=== PATIENT | female | born 1970 | race African-American/Black ===

== ENCOUNTER → 2020-05-12 08:27 | Outpatient (BNVA) | payer MEDICAID, SELFPAY | PROVIDERS: Visit Provider Physician Assistant | DX: Z76.89 Persons encountering health services in other specified circumstances (principal) ==

== ENCOUNTER 2020-05-17 06:22 | Outpatient (REF) | payer MEDICAID, SELFPAY | END 2020-05-17 06:23 | disposition home or self-care (01) | LOC: HO.LAB 06:22 | PROVIDERS: Visit Provider Internal Medicine | DX: Z20.822 Contact with and (suspected) exposure to COVID-19 (principal) | CPT/HCPCS: 36415; C9803; U0003 ==

== ENCOUNTER 2020-12-03 09:22 | Outpatient (REF) | payer MEDICAID, SELFPAY ==
[2020-12-03 10:57] LABS: Basophils Percent Auto 0.4 % (0-2); Lymphocytes Absolute Auto 1.7 X10*3/uL (1.2-4.9); Mean Corpuscular Volume 74.6 fL (80-98); Red Cell Distribution Width 20.3 % (11.0-16.0)
[2020-12-03 10:58] LABS: Eosinophils Percent Auto 0.8 % (0-4); Hematocrit 34.9 % (37-47); Hemoglobin 10.3 g/dl (12.0-16.0); Imm Gran Abs Auto 0.01 X10*3/uL (0.00-0.03); Imm Gran Pct Auto 0.2 % (0.0-0.4); Lymphocytes Percent Auto 32.6 % (20-40); Mean Corpuscular HGB Conc 29.5 g/dl (31.0-35.0); Mean Platelet Volume 11.1 fL (9.4-12.3); Monocytes Absolute Auto 0.4 X10*3/uL (0.1-1.2); Monocytes Percent Auto 7.1 % (2-11); Neutrophils Absolute Auto 3.1 X10*3/uL (2.0-8.3); Neutrophils Percent Auto 58.9 % (45-73); Platelet Count 248 X10*3/uL (160-400); Red Blood Count 4.68 X10*6/uL (4.20-5.50); White Blood Count 5.2 X10*3/uL (4.8-10.8)
[2020-12-03 11:11] LABS: Estimated Average Glucose 128 mg/dL; Hemoglobin A1c % 6.1 %
[2020-12-03 11:34] LABS: Alanine Aminotransferase 15 U/L (0-31); Albumin Level 4.3 g/dL (3.5-5.0); Alkaline Phosphatase 95 U/L (39-117); Anion Gap 14 (12-20); Aspartate Amino Transferase 25 U/L (5-31); Bilirubin Total 0.8 mg/dL (0.0-1.0); Blood Urea Nitrogen 12 mg/dL (9-16); C Reactive Protein 1.89 mg/dL (< or = 0.50); Calcium 9.3 mg/dL (8.4-10.2); Carbon Dioxide 27 mmol/L (22-29); Chloride 103 mmol/L (96-108); Cholesterol 166 mg/dL; Estimated Glomerular Filt Rate > 60; Glucose Random 101 mg/dL (60-115); HDL Cholesterol 39 mg/dL; Iron 33 mcg/dL (30-160); LDL Cholesterol Calculated 108 mg/dl; Percent Iron Saturation 6 % (15-50); Potassium 4.7 mmol/L (3.3-5.1); Sodium 139 mmol/L (135-145); Total Iron Binding Capacity 527 mcg/dL (228-428); Total Protein 8.1 g/dL (6.5-8.0); Triglycerides 98 mg/dL; Unsaturated Iron Binding 494 ug/dL
[2020-12-03 11:53] LABS: Folate > 20.0 ng/mL (> or = 4.0); Vitamin B12 603 pg/mL (200-900)
[2020-12-03 11:54] LABS: Ferritin 9 ng/mL (10-250); TSH reflex Free T4 5.27 uIU/mL (0.32-4.0); Vitamin D 25-OH Total 47.4 ng/mL (>30)
[2020-12-03 12:35] LABS: Free T4 (Free Thyroxine) 1.06 ng/dL (0.71-1.85)
[2020-12-04 10:02] LABS: Insulin Level Total 12.3 uIU/mL
[2020-12-06 16:20] LABS: Calcium (PTHI) 9.1 mg/dL (8.6-10.2); PTHI 59 pg/mL (14-64)
[2020-12-08 01:42] LABS: Zinc 77 mcg/dL (60-130)
[2020-12-08 11:56] LABS: Vitamin B1 23 nmol/L (8-30)
[2020-12-09 03:32] LABS: Vitamin A 39 mcg/dL (38-98)
== END 2020-12-03 09:23 | disposition home or self-care (01) ==
LOC: HO.LAB 09:22
PROVIDERS: PCP Internal Medicine; Visit Provider Physician Assistant
DX: E66.9 Obesity, unspecified (principal); Z79.899 Other long term (current) drug therapy; Z98.84 Bariatric surgery status; Z71.3 Dietary counseling and surveillance; Z68.33 Body mass index [BMI] 33.0-33.9, adult
CPT/HCPCS: 36415; 80053; 80061; 82306; 82607; 82728; 82746; 83036; 83525; 83540; 83970; 84425; 84439; 84443; 84590; 84630; 85025; 86140; 99212

== ENCOUNTER → 2021-01-14 08:03 | Outpatient (BNVA) | payer MEDICAID, SELFPAY | PROVIDERS: PCP Internal Medicine; Visit Provider Dietitian, Registered | DX: E66.9 Obesity, unspecified (principal) | CPT/HCPCS: 97803 ==

== ENCOUNTER → 2021-02-16 09:20 | Outpatient (BNVA) | payer MEDICAID, SELFPAY | PROVIDERS: PCP Internal Medicine; Referring Provider Internal Medicine; Visit Provider Physician Assistant Surgical | DX: E66.9 Obesity, unspecified (principal); K21.9 Gastro-esophageal reflux disease without esophagitis; Z68.32 Body mass index [BMI] 32.0-32.9, adult | CPT/HCPCS: 99212 ==

== ENCOUNTER → 2021-03-21 08:06 | Outpatient (BNVA) | payer MEDICAID, SELFPAY | PROVIDERS: PCP Internal Medicine; Visit Provider Physician Assistant Surgical | DX: E66.9 Obesity, unspecified (principal) ==

== ENCOUNTER 2022-01-09 11:23 | Outpatient (REF) | payer MEDICAID, SELFPAY ==
--- NOTE | ~2022-01-09 | XR_ITS ---
EXAMINATION: XR FOOT, LEFT CLINICAL INFORMATION: Left lateral foot pain/burning. No injury COMPARISON: None TECHNIQUE: AP, lateral, and oblique views of the left foot. FINDINGS: No fracture or dislocation. Normal mineralization and alignment. Moderate plantar calcaneal osteophyte. XR/XR foot LT min 3V IMPRESSION: No acute osseous abnormality of the left foot.
--- NOTE | ~2022-01-09 | MM_ITS ---
EXAMINATION: MM SCREENING DIGITAL BREAST TOMOSYNTHESIS, BILATERAL CLINICAL INFORMATION: Screening. Asymptomatic. The lifetime risk of breast cancer based on the Tyrer-Cuzick Model is 8%. COMPARISON: Mammography: 08/20/2018, 01/18/2017; outside mammography: 11/30/2012, 02/12/2013 ([facility]) TECHNIQUE: Digital breast tomosynthesis is performed in both the craniocaudal and mediolateral oblique views along with computer-aided detection (CAD). Synthesized 2D images are generated from the tomosynthesis. Additional right CC view is provided. FINDINGS: There are scattered areas of fibroglandular density (ACR BI-RADS breast composition Category b). There are no significant masses, abnormal calcifications, or other abnormalities. Parenchymal pattern is similar to prior studies. There is no developing density or architectural abnormality. The axilla and skin contours are unremarkable. No significant changes. MM/MM tomosynthesis screening BI IMPRESSION: No mammographic evidence of malignancy. ASSESSMENT: BI-RADS 1: Negative RECOMMENDATION: Routine annual mammography screening. This patient's information was entered into a reminder system with a target due date for their next mammogram.
== END 2022-01-09 11:24 | disposition home or self-care (01) ==
LOC: HO.MAMMO 11:23
PROVIDERS: PCP Internal Medicine; Visit Provider Internal Medicine
DX: Z12.31 Encounter for screening mammogram for malignant neoplasm of breast (principal); M79.672 Pain in left foot
CPT/HCPCS: 73630; 77063; 77067

== ENCOUNTER 2023-01-17 15:32 | Outpatient (AMB) | payer MEDICAID, SELFPAY ==
--- NOTE | 2023-01-17 15:38 | MHC.OFFVISWM ---
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 Presents for 6 year post op visit. Weight today is 188.4 pounds, with a BMI of 33.4. She has not been seen in the office in 2 years, weight at that time on 02/16/21 was 184.6 pounds and a BMI of 32.7. She states she is feeling hungry and that between 3-5 pm. She also states she feels it may be anxiety. wake 6 am, bed at 10 pm, dinner 5 pm Present meal plan includes: 11 am 2 eggs, 2 pm sandwich 3-6 pm cereal w whole milk, cookies, Drinking 32 oz water, no soda or juice ? Exercise routine includes: none Any post op complications: none YARELY: never DM: never HTN: resolverd Hyperlipidemia: never GERD:?0-5 scale ??0 = no symptoms ??1 = symptoms noticeable but not bothersome 2 =symptoms bothersome but not daily ? 3 = symptoms bothersome and daily 4 = symptoms affect daily activities 5 = symptoms are incapacitating, unable to do daily activities ? How bad is the heartburn: [] ? Heartburn while lying down: [] ? Heartburn when standing up: [] ? Heartburn after meals: [] ? Does heartburn change your diet: [] ? Does heartburn wake you up from sleep: [] ? Do you have difficulty swallowing: [] ? Do you have pain with swallowing: [] ? If you take medicine for your reflux, does this affect your daily life: [] Satisfaction with present condition - satisfied or not satisfied: [] PFSH Surgical History History of sleeve gastrectomy Hx of cholecystectomy Hx of tubal ligation Family History Father Diabetes mellitus Hypertension Mother Bone cancer Son Diabetes mellitus Son No problems noted. Son No problems noted. Son No problems noted. Daughter No problems noted. Social History Alcohol intake: never Patient Tobacco Use Status: Never used Tobacco Review of Systems Const All systems reviewed & are unremarkable except as noted in HPI and below Physical Exam Const General: cooperative and no acute distress Orientation/consciousness: patient oriented x3 Resp Effort & Inspection: normal respiratory effort Auscultation: clear to auscultation bilaterally Cardio Rate: regular rate Rhythm: regular rhythm GI Inspection: Yes normal to inspection and Yes incision (well healed) Palpation (GI): Soft to palpation and no masses Neuro General: patient oriented x3 Assessment & Plan Assessment & Plan (1) Obesity: Code(s): E66.9 - Obesity, unspecified Plan: check yearly labs meal plan using Celebrate rebuild all 1 scoop in 8 oz unsweetened almond milk 7-9 am shake 11-1 pm shake 3 pm yogurt w berries 5 pm meal -7 forks/7 forks 7-9 pm shake start exercise goal of cardio 300 neelima per day. treadmill/bike/elliptical rtc 6 weeks with goal of 12 pound weight loss Orders: Orders Vitamin B12 and Folate Today D50.9 - Iron deficiency anemia, unspecified, E03.9 - Hypothyroidism, unspecified, E66.9 - Obesity, unspecified, F43.20 - Adjustment disorder, unspecified Basic Metabolic Panel Today D50.9 - Iron deficiency anemia, unspecified, E03.9 - Hypothyroidism, unspecified, E66.9 - Obesity, unspecified, F43.20 - Adjustment disorder, unspecified Ferritin Today D50.9 - Iron deficiency anemia, unspecified, E03.9 - Hypothyroidism, unspecified, E66.9 - Obesity, unspecified, F43.20 - Adjustment disorder, unspecified Hemoglobin A1c Today D50.9 - Iron deficiency anemia, unspecified, E03.9 - Hypothyroidism, unspecified, E66.9 - Obesity, unspecified, F43.20 - Adjustment disorder, unspecified IRON PROFILE Today D50.9 - Iron deficiency anemia, unspecified, E03.9 - Hypothyroidism, unspecified, E66.9 - Obesity, unspecified, F43.20 - Adjustment disorder, unspecified Lipid Panel Today D50.9 - Iron deficiency anemia, unspecified, E03.9 - Hypothyroidism, unspecified, E66.9 - Obesity, unspecified, F43.20 - Adjustment disorder, unspecified PTHI Today D50.9 - Iron deficiency anemia, unspecified, E03.9 - Hypothyroidism, unspecified, E66.9 - Obesity, unspecified, F43.20 - Adjustment disorder, unspecified TSH reflex Free T4 Today D50.9 - Iron deficiency anemia, unspecified, E03.9 - Hypothyroidism, unspecified, E66.9 - Obesity, unspecified, F43.20 - Adjustment disorder, unspecified Vitamin A Today D50.9 - Iron deficiency anemia, unspecified, E03.9 - Hypothyroidism, unspecified, E66.9 - Obesity, unspecified, F43.20 - Adjustment disorder, unspecified Vitamin B1 Today D50.9 - Iron deficiency anemia, unspecified, E03.9 - Hypothyroidism, unspecified, E66.9 - Obesity, unspecified, F43.20 - Adjustment disorder, unspecified Vitamin D 25-OH Total Today D50.9 - Iron deficiency anemia, unspecified, E03.9 - Hypothyroidism, unspecified, E66.9 - Obesity, unspecified, F43.20 - Adjustment disorder, unspecified Zinc Today D50.9 - Iron deficiency anemia, unspecified, E03.9 - Hypothyroidism, unspecified, E66.9 - Obesity, unspecified, F43.20 - Adjustment disorder, unspecified Complete Blood Count Auto Diff Today D50.9 - Iron deficiency anemia, unspecified, E03.9 - Hypothyroidism, unspecified, E66.9 - Obesity, unspecified, F43.20 - Adjustment disorder, unspecified Referrals Behavioral Health Referral D50.9 - Iron deficiency anemia, unspecified, E03.9 - Hypothyroidism, unspecified, E66.9 - Obesity, unspecified, F43.20 - Adjustment disorder, unspecified Coding Level of Care Code Est Pt Level 4 (72603) Diagnoses Obesity E66.9
[2023-01-17 15:45] VITALS: BP 139/77; PULSE 87; TEMP 35.7; O2SAT 97; BMI 33.4
== END 2023-01-17 16:23 | disposition home or self-care (01) ==
PROVIDERS: PCP Internal Medicine; Visit Provider Physician Assistant Surgical
DX: E66.9 Obesity, unspecified (principal)
CPT/HCPCS: 99214

== ENCOUNTER → 2023-01-17 15:32 | Outpatient (BNVA) | payer MEDICAID, SELFPAY | PROVIDERS: PCP Internal Medicine; Visit Provider Physician Assistant Surgical | DX: E66.9 Obesity, unspecified (principal); Z68.33 Body mass index [BMI] 33.0-33.9, adult; Z98.84 Bariatric surgery status | CPT/HCPCS: 99212 ==

== ENCOUNTER 2023-01-18 09:40 | Outpatient (REF) | payer MEDICAID, SELFPAY ==
[2023-01-18 09:59] LABS: MANUAL DIFF FLAG NO
[2023-01-18 10:33] LABS: Basophils Percent Auto 0.3 % (0-2); Eosinophils Percent Auto 0.7 % (0-4); Hematocrit 39.8 % (37.0-47.0); Hemoglobin 12.5 g/dl (12.0-16.0); Imm Gran Abs Auto 0.02 X10*3/uL (0.00-0.03); Imm Gran Pct Auto 0.3 % (0.0-0.4); Lymphocytes Percent Auto 33.8 % (20-40); Mean Corpuscular HGB Conc 31.4 g/dl (31.0-35.0); Mean Corpuscular Hemoglobin 26.5 pg (27.0-33.0); Mean Corpuscular Volume 84.3 fL (80.0-98.0); Mean Platelet Volume 10.8 fL (9.4-12.3); Monocytes Absolute Auto 0.4 X10*3/uL (0.1-1.2); Monocytes Percent Auto 7.4 % (2-11); Neutrophils Absolute Auto 3.4 x10*3/uL (2.0-8.3); Neutrophils Percent Auto 57.5 % (45-73); Platelet Count 217 X10*3/uL (160-400); Red Blood Count 4.72 X10*6/uL (4.20-5.50); Red Cell Distribution Width 17.3 % (11.0-16.0); White Blood Count 5.9 X10*3/uL (4.8-10.8)
[2023-01-18 10:36] LABS: Estimated Average Glucose 123 mg/dL; Hemoglobin A1c % 5.9 % (<6.0)
[2023-01-18 11:25] LABS: Anion Gap 9 (12-20); Blood Urea Nitrogen 9 mg/dL (9-16); Calcium 9.5 mg/dL (8.4-10.2); Carbon Dioxide 28 mmol/L (22-29); Chloride 106 mmol/L (96-108); Cholesterol 171 mg/dL (<200); Estimated Glomerular Filt Rate > 60; Glucose Random 89 mg/dL (60-115); HDL Cholesterol 37 mg/dL (>40); Iron 58 mcg/dL (30-160); LDL Cholesterol Calculated 111 mg/dL (<100); Percent Iron Saturation 15 % (15-50); Potassium 4.2 mmol/L (3.3-5.1); Sodium 139 mmol/L (135-145); Total Iron Binding Capacity 385 mcg/dL (228-428); Triglycerides 118 mg/dL (<150); Unsaturated Iron Binding 327 ug/dL
[2023-01-18 11:43] LABS: Ferritin 25 ng/mL (10-250); TSH reflex Free T4 1.34 uIU/mL (0.32-4.0); Vitamin D 25-OH Total 51.5 ng/mL (>30)
[2023-01-18 11:51] LABS: Folate 14.7 ng/mL (> or = 4.0); Vitamin B12 582 pg/mL (200-900)
[2023-01-19 15:54] LABS: Calcium (PTHI) 9.1 mg/dL (8.6-10.4); PTHI 61 pg/mL (16-77)
[2023-01-22 09:39] LABS: Zinc 70 mcg/dL (60-130)
[2023-01-23 14:04] LABS: Vitamin B1 13 nmol/L (8-30)
[2023-01-24 14:18] LABS: Vitamin A 43 mcg/dL (38-98)
== END 2023-01-18 09:41 | disposition home or self-care (01) ==
LOC: HO.LAB 09:40
PROVIDERS: PCP Internal Medicine; Visit Provider Physician Assistant Surgical
DX: E66.9 Obesity, unspecified (principal); F43.20 Adjustment disorder, unspecified; E03.9 Hypothyroidism, unspecified; D50.9 Iron deficiency anemia, unspecified
CPT/HCPCS: 36415; 80048; 80061; 82306; 82607; 82728; 82746; 83036; 83540; 83970; 84425; 84443; 84590; 84630; 85025

== ENCOUNTER 2023-03-30 10:23 | Outpatient (AMB) | payer MEDICAID, SELFPAY ==
--- NOTE | 2023-03-30 10:32 | A.OFFVIS_ITS ---
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 Presents for 6 year 1 month year post op visit. Weight today is 188.4 pounds, with a BMI of 33.4. She was last seen in the office on 01/17/2023. Weight at that time was 188.4 lb with a BMI of 33.4. Weight today is 189.4 with a BMI of 33.6. She states she is having increased anxiety and has been stress eating. States she is following the meal plan exactly 2 days per week but using 2 scoops per shake. Inquired about the use of phentermine wake 6 am, bed at 10 pm, dinner 5 pm Present meal plan includes: Celebrate rebuild all 1 scoop in 8 oz unsweetened almond milk 7-9 am shake 11-1 pm shake 3 pm yogurt w berries 5 pm meal -7 forks/7 forks 7-9 pm shake ? Exercise routine includes: walking PFSH Surgical History History of sleeve gastrectomy Hx of tubal ligation Hx of cholecystectomy Family History Father Diabetes mellitus Hypertension Mother Bone cancer Son Diabetes mellitus Son No problems noted. Son No problems noted. Son No problems noted. Daughter No problems noted. Social History Alcohol intake: never Patient Tobacco Use Status: Never used Tobacco Review of Systems Const All systems reviewed & are unremarkable except as noted in HPI and below Physical Exam Const General: healthy appearing and no acute distress Resp Effort & Inspection: normal respiratory effort Auscultation: clear to auscultation bilaterally Cardio Rate: regular rate Rhythm: regular rhythm GI Auscultation: normal bowel sounds Extrem General: Yes normal to inspection Assessment & Plan Assessment & Plan (1) Obesity: Code(s): E66.9 - Obesity, unspecified Plan: Patient will start phentermine 37.5 mg. She states that she has a blood pressure cuff at home that also contract her heart rate. She states that she will check her blood pressure and heart rate daily and text those numbers to me. She was made aware of potential side effects including tachycardia, hypertension, insomnia, dry mouth, constipation. We discussed strategies when she becomes anxious instead of eating, including some form of exercise as well as slow breathing. She will follow the meal plan exactly as written or text with any questions or concerns. Return to clinic in 2 weeks Medications: New phentermine must administer 30 minutes before or 1-2 hours after breakfast check BP daily 37.5 mg PO DAILY 14 caps 0RF Coding Level of Care Code Est Pt Level 4 (70655) Diagnoses Obesity E66.9
[2023-03-30 10:38] VITALS: BP 145/77; PULSE 84; TEMP 36.2; O2SAT 100; BMI 33.5
== END 2023-03-30 11:12 | disposition home or self-care (01) ==
LOC: HO.HBS 10:24
PROVIDERS: PCP Internal Medicine; Visit Provider Physician Assistant Surgical
DX: E66.9 Obesity, unspecified (principal)
CPT/HCPCS: 99214

== ENCOUNTER → 2023-03-30 10:23 | Outpatient (BNVA) | payer MEDICAID, SELFPAY | PROVIDERS: PCP Internal Medicine; Visit Provider Physician Assistant Surgical | DX: E66.9 Obesity, unspecified (principal); Z68.33 Body mass index [BMI] 33.0-33.9, adult | CPT/HCPCS: 99212 ==

== ENCOUNTER 2023-04-10 12:16 | Outpatient (AMB) | payer MEDICAID, SELFPAY ==
--- NOTE | 2023-04-10 12:01 | MHC.OFFVISWM ---
Intake VS Expanded 04/10/23 12:02 Height 5 ft 3 in Weight 186 lb BMI 32.9 Intake Visit Reasons: VIDEO MO LSG 02/15/17 *Time okay Per MB* Allergies No Known Allergies Allergy (Verified 03/30/23 10:33) Pt states no food/medication a Allergy (Unknown, Uncoded 01/17/23 15:41) none HPI HPI Comments History of Present Illness Details This?a?52?yo female who is s/p LSG without hiatal hernia repair on?02/15/[address] Bui. Presents for 6 year 2 month year post op visit. Weight today is 186 pounds, with a BMI of 32.9. She was last seen in the office on 03/30/23. Weight at that time was 188.4 lb with a BMI of 33.4. She was started on Phentermine but experienced increased BP, since stopping phentermine 120s/70s States she is following the meal plan exactly wake 6 am, bed at 10 pm, dinner 5 pm Present meal plan includes: Celebrate rebuild all 1 scoop in 8 oz unsweetened almond milk 7-9 am shake 11-1 pm shake 3 pm yogurt w berries 5 pm meal -7 forks/7 forks 7-9 pm shake Drinkin oz Exercise: Gym, treadmill, 1 hour 425 calories, 4 x per week. Eliptical, 50 neelima PFSH Surgical History History of sleeve gastrectomy Hx of tubal ligation Hx of cholecystectomy Family History Father Diabetes mellitus Hypertension Mother Bone cancer Son Diabetes mellitus Son No problems noted. Son No problems noted. Son No problems noted. Daughter No problems noted. Social History Alcohol intake: never Patient Tobacco Use Status: Never used Tobacco Assessment & Plan Assessment & Plan (1) Obesity: Code(s): E66.9 - Obesity, unspecified Plan: Making progress. Reminded of the importance of measuring her food. Phentermine was discontinued due to hypertension with resolution of hypertension based on her home blood pressure readings once the med was discontinued. She was additionally encouraged to increase her exercise at the gym by 1 day. She will return to the office in 3 weeks time. Telehealth Telehealth Location of provider rendering services: practice address Location of patient: address on file Patient Identification confirmed using: Name, : Yes Telehealth method: voice only Patient verbally consented to treatment: Yes Patient verbally consented to billing insurance company: Yes Patient informed of any privacy concerns related to visit: Yes Minutes spent on Phone/Video with Pt.: 12 Coding Level of Care Code Tele Est Pt Level 3 (79821) Diagnoses Obesity E66.9 Time Spent (min) 15
[2023-04-10 12:02] VITALS: BMI 32.9
== END 2023-04-10 12:17 | disposition home or self-care (01) ==
LOC: HO.HBS 12:16
PROVIDERS: PCP Internal Medicine; Visit Provider Physician Assistant Surgical
DX: E66.9 Obesity, unspecified (principal); Z68.32 Body mass index [BMI] 32.0-32.9, adult
CPT/HCPCS: 99213

== ENCOUNTER → 2023-04-10 12:16 | Outpatient (BNVA) | payer MEDICAID, SELFPAY | PROVIDERS: PCP Internal Medicine; Visit Provider Physician Assistant Surgical | DX: E66.9 Obesity, unspecified (principal); Z68.32 Body mass index [BMI] 32.0-32.9, adult; Z90.49 Acquired absence of other specified parts of digestive tract; Z90.3 Acquired absence of stomach [part of] | CPT/HCPCS: 99213 ==

== ENCOUNTER 2023-05-02 09:05 | Outpatient (AMB) | payer MEDICAID, SELFPAY ==
[2023-05-02 08:43] VITALS: BMI 31.9
--- NOTE | 2023-05-02 08:43 | MHC.OFFVISWM ---
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 Presents for 6 year 3 month year post op visit. Weight today is 180 pounds, with a BMI of 31.9. She was last seen in the office on 04/10/23. Weight at that time was 186 lb with a BMI of 32.9. States she is following the meal plan exactly wake 6 am, bed at 10 pm, dinner 5 pm Present meal plan includes: Celebrate rebuild all 1 scoop in 8 oz unsweetened almond milk 7-9 am shake 11-1 pm shake 3 pm yogurt w berries 5 pm meal -7 forks/7 forks 7-9 pm shake Drinkin oz Exercise: Gym, treadmill, 1 hour 425 calories, 4 x per week. Eliptical, 15 minutes, 50 neelima PFSH Surgical History History of sleeve gastrectomy Hx of tubal ligation Hx of cholecystectomy Family History Father Diabetes mellitus Hypertension Mother Bone cancer Son Diabetes mellitus Son No problems noted. Son No problems noted. Son No problems noted. Daughter No problems noted. Social History Alcohol intake: never Patient Tobacco Use Status: Never used Tobacco Assessment & Plan Assessment & Plan (1) Obesity: Code(s): E66.9 - Obesity, unspecified Plan: overall doing well and losing weight, recognizes the importance of consistency and increasing the time at the gym to 5 days change meal plan slightly to : Celebrate rebuild 1 scoop in 8 oz unsweetened almond milk for the first 2 shakes 7-9 am shake 11-1 pm shake 3 pm yogurt w berries 5 pm meal -7 forks/7 forks 7-9 pm shake, 1/2 scoop in 8 oz unsweetened almond milk rtc 4 weeks Telehealth Telehealth Location of provider rendering services: practice address Location of patient: other Patient Identification confirmed using: Name, : Yes Telehealth method: voice only Patient verbally consented to treatment: Yes Patient verbally consented to billing insurance company: Yes Patient informed of any privacy concerns related to visit: Yes Minutes spent on Phone/Video with Pt.: 10 Coding Level of Care Code Tele Est Pt Level 3 (51845) Diagnoses Obesity E66.9 Time Spent (min) 12
== END 2023-05-02 09:07 | disposition home or self-care (01) ==
LOC: HO.HBS 09:05
PROVIDERS: PCP Internal Medicine; Visit Provider Physician Assistant Surgical
DX: E66.9 Obesity, unspecified (principal); Z68.31 Body mass index [BMI] 31.0-31.9, adult; Z90.3 Acquired absence of stomach [part of]; Z98.84 Bariatric surgery status
CPT/HCPCS: 99213

== ENCOUNTER → 2023-05-02 09:05 | Outpatient (BNVA) | payer MEDICAID, SELFPAY | PROVIDERS: PCP Internal Medicine; Visit Provider Physician Assistant Surgical | DX: E66.9 Obesity, unspecified (principal); Z68.31 Body mass index [BMI] 31.0-31.9, adult | CPT/HCPCS: 99212 ==

== ENCOUNTER 2023-07-26 10:13 | Outpatient (REF) | payer MEDICAID, SELFPAY ==
[2023-07-26 14:19] LABS: MANUAL DIFF FLAG NO
[2023-07-26 14:28] LABS: Basophils Percent Auto 0.4 % (0-2); Eosinophils Percent Auto 0.4 % (0-4); Hematocrit 40.4 % (37.0-47.0); Hemoglobin 13.2 g/dl (12.0-16.0); Imm Gran Abs Auto 0.03 X10*3/uL (0.00-0.03); Imm Gran Pct Auto 0.4 % (0.0-0.4); Lymphocytes Absolute Auto 2.2 X10*3/uL (1.2-4.9); Lymphocytes Percent Auto 30.3 % (20-40); Mean Corpuscular HGB Conc 32.7 g/dl (31.0-35.0); Mean Corpuscular Hemoglobin 26.5 pg (27.0-33.0); Mean Platelet Volume 11.7 fL (9.4-12.3); Monocytes Absolute Auto 0.4 X10*3/uL (0.1-1.2); Neutrophils Absolute Auto 4.5 x10*3/uL (2.0-8.3); Neutrophils Percent Auto 62.5 % (45-73); Platelet Count 206 X10*3/uL (160-400); Red Blood Count 4.99 X10*6/uL (4.20-5.50); Red Cell Distribution Width 18.6 % (11.0-16.0); White Blood Count 7.2 X10*3/uL (4.8-10.8)
[2023-07-26 15:19] LABS: Alanine Aminotransferase 19 U/L (0-31); Albumin Level 4.3 g/dL (3.5-5.0); Alkaline Phosphatase 96 U/L (39-117); Anion Gap 16 (12-20); Aspartate Amino Transferase 20 U/L (5-31); Bilirubin Total 0.8 mg/dL (0.0-1.0); Blood Urea Nitrogen 10 mg/dL (9-16); Calcium 9.2 mg/dL (8.4-10.2); Carbon Dioxide 25 mmol/L (22-29); Chloride 102 mmol/L (96-108); Cholesterol 175 mg/dL (<200); Estimated Glomerular Filt Rate > 60; Glucose Random 63 mg/dL (60-115); HDL Cholesterol 43 mg/dL (>40); Iron 84 mcg/dL (30-160); LDL Cholesterol Calculated 110 mg/dL (<100); Percent Iron Saturation 21 % (15-50); Potassium 3.8 mmol/L (3.3-5.1); Sodium 139 mmol/L (135-145); Total Iron Binding Capacity 399 mcg/dL (228-428); Total Protein 8.3 g/dL (6.5-8.0); Triglycerides 110 mg/dL (<150); Unsaturated Iron Binding 315 ug/dL
[2023-07-30 23:09] LABS: HIV RNA PCR Qn Copies Not Detected Copies/mL; HIV RNA PCR Qn Log Copies Not Detected Log cps/mL
== END 2023-07-26 10:14 | disposition home or self-care (01) ==
LOC: HO.CHCLDS 10:13
PROVIDERS: Visit Provider Internal Medicine
DX: Z11.4 Encounter for screening for human immunodeficiency virus [HIV] (principal); E03.9 Hypothyroidism, unspecified; D50.8 Other iron deficiency anemias
CPT/HCPCS: 36415; 80053; 80061; 83540; 84439; 84443; 85025; 87536; 87900

== ENCOUNTER 2023-08-14 10:54 | Outpatient (REF) | payer MEDICAID, SELFPAY ==
[2023-08-21 04:18] LABS: HPV mRNA E6/E7 rflx Not Detected (Not Detected)
== END 2023-08-14 10:55 | disposition home or self-care (01) ==
LOC: HO.LNP 10:54
PROVIDERS: Visit Provider Advanced Practice Midwife
DX: Z01.419 Encounter for gynecological examination (general) (routine) without abnormal findings (principal)
CPT/HCPCS: 87624; 88142

== ENCOUNTER 2023-08-21 16:24 | Outpatient (REF) | payer MEDICAID, SELFPAY ==
--- NOTE | ~2023-08-21 | US_ITS ---
EXAMINATION: US PELVIS CLINICAL INFORMATION: Menorrhagia COMPARISON: Previous pelvic ultrasound September 2016 TECHNIQUE: Ultrasound of the pelvis is performed using both transabdominal and transvaginal transducers along with Doppler. Transvaginal imaging is performed due to inadequate visualization transabdominally. FINDINGS: Uterus is anteverted and measures 10.6 x 4.7 x 5.7 cm in dimension. Uterus is heterogeneous in echotexture. There are 2 focal hypoechoic lesions questionable for fibroids measuring 2.4 x 2.5 x 2.3 cm in the left uterine fundus and 1.4 cm in the posterior uterine body. Endometrial thickness is normal measuring 0.5 cm. There are nabothian cysts in the cervix. The ovaries are normal. The right ovary measures 2.8 x 1.4 x 1.3 cm. The left ovary measures 2.8 x 2 x 2 cm. There is no fluid in the pelvis. US/US pelvic and transvaginal IMPRESSION: Heterogeneous appearing uterus with 2 focal hypoechoic lesions probably representing fibroids, largest measuring 2.5 cm and the left uterine fundus. Normal-appearing ovaries.
== END 2023-08-21 16:25 | disposition home or self-care (01) ==
LOC: HO.US 16:24
PROVIDERS: PCP Internal Medicine; Visit Provider Advanced Practice Midwife
DX: N92.0 Excessive and frequent menstruation with regular cycle (principal)
CPT/HCPCS: 76830; 76856

== ENCOUNTER 2023-09-05 13:46 | Outpatient (AMB) | payer MEDICAID, SELFPAY ==
--- NOTE | 2023-09-05 08:26 | A.OFFVIS_ITS ---
VS Expanded 09/05/23 08:27 Height 5 ft 3 in Weight 191 lb BMI 33.8 Intake Visit Reasons: (TV) MO LSG 02/15/17 Allergies No Known Allergies Allergy (Verified 03/30/23 10:33) Pt states no food/medication a Allergy (Unknown, Uncoded 01/17/23 15:41) none HPI Comments Details: This?a?52?yo female who is s/p LSG without hiatal hernia repair on?02/15/[address] Bui. Presents for 6 year 6 month year post op visit. Weight today is 191 pounds, with a BMI of 33.8. She was last seen in the office on 05/02/23. Weigh t at that time was 180 lb with a BMI of 32.9. States she has had weight gain but she gets bored with her meal plan and then goes back to eating. She has been picking at things. wake 6 am, bed at 10 pm, dinner 5 pm Present meal plan includes: Celebrate rebuild all 1 scoop in 8 oz unsweetened almond milk 7-9 am shake 11-1 pm shake 3 pm yogurt w berries 5 pm meal -7 forks/7 forks 7-9 pm shake Drinkin oz Exercise: walking outside, 2-3 days per week, 300-350 not much time at the gym Gym, treadmill, 1 hour 425 calories, 4 x per week. Eliptical, 15 minutes, 50 neelima PFSH Surgical History History of sleeve gastrectomy Hx of tubal ligation Hx of cholecystectomy Family History Father Diabetes mellitus Hypertension Mother Bone cancer Son Diabetes mellitus Son No problems noted. Son No problems noted. Son No problems noted. Daughter No problems noted. Social History Alcohol intake: never Patient Tobacco Use Status: Never used Tobacco Physical Exam Vital Signs: BMI result Body Mass Index 33.8 Telehealth Telehealth Telehealth Platform: Telephone Location of provider rendering services: practice address Location of patient: address on file Patient Identification confirmed using: Name, : Yes Telehealth method: voice only Patient verbally consented to treatment: Yes Patient verbally consented to billing insurance company: Yes Patient informed of any privacy concerns related to visit: Yes Minutes spent on Phone/Video with Pt.: 15 Assessment & Plan Assessment & Plan (1) Obesity: Code(s): E66.9 - Obesity, unspecified Category: Medical Plan: Encouraged to return to the meal plan and follow it closely. Encouraged to text with any questions or concerns, especially if she gets ?bored? with the meal plan. Encouraged to return to the gym and increase her exercise as she had been doing previously. She does state that when she follows meal plan she has not particularly ?hungry?. She also feels better when she is following the plan and exercising regularly. Return to clinic 2 months with the understanding she will text sooner with any questions or concerns.
[2023-09-05 08:27] VITALS: BMI 33.8
== END 2023-09-05 14:01 | disposition home or self-care (01) ==
LOC: HO.HBS 13:46
PROVIDERS: PCP Internal Medicine; Visit Provider Physician Assistant Surgical
DX: E66.9 Obesity, unspecified (principal)
CPT/HCPCS: 99213

== ENCOUNTER → 2023-09-05 13:46 | Outpatient (BNVA) | payer MEDICAID, SELFPAY | PROVIDERS: PCP Internal Medicine; Visit Provider Physician Assistant Surgical ==

== ENCOUNTER 2023-09-10 14:50 | Outpatient (AMB) | payer MEDICAID, SELFPAY ==
[2023-09-10 15:05] VITALS: BP 118/74; BMI 33.6
--- NOTE | 2023-09-10 15:05 | A.OFFVIS_ITS ---
Vital Signs 09/10/23 15:05 Height 5 ft 3 in Weight 189 lb 9.561 oz BMI 33.6 BP 118/74 Intake Visit Reasons: New patient Fibroids Allergies No Known Allergies Allergy (Verified 09/10/23 15:15) Pt states no food/medication a Allergy (Unknown, Uncoded 09/10/23 15:15) none HPI Comments Details: The patient is referred from [facility] complaining of irregular heavy menstrual cycles. Pelvic ultrasound done in 09/04 showed the following: Uterus is anteverted and measures 10.6 x 4.7 x 5.7 cm in dimension. Uterus is heterogeneous in echotexture. There are 2 focal hypoechoic lesions questionable for fibroids measuring 2.4 x 2.5 x 2.3 cm in the left uterine fundus and 1.4 cm in the posterior uterine body. Endometrial thickness is normal measuring 0.5 cm. There are nabothian cysts in the cervix. The ovaries are normal. The right ovary measures 2.8 x 1.4 x 1.3 cm. The left ovary measures 2.8 x 2 x 2 cm. There is no fluid in the pelvis. Last co testing in 09/04 was negative Last mammogram in 01/02 was BI-RADS 1, the patient is scheduled for another wv reening mammogram in few weeks [facility] Surgical History History of sleeve gastrectomy Hx of tubal ligation Hx of cholecystectomy Family History Father Diabetes mellitus Hypertension Mother Bone cancer Son Diabetes mellitus Son No problems noted. Son No problems noted. Son No problems noted. Daughter No problems noted. Social History Alcohol intake: never Patient Tobacco Use Status: Never used Tobacco Review of Systems Const All systems reviewed & are unremarkable except as noted in HPI and below Card Reports as per HPI Resp Reports as per HPI GI Reports as per HPI and Reports no additional complaints Reports as per HPI Physical Exam Vital Signs: Last Vital Signs BP 118/74 09/10/23 15:05 BMI result Body Mass Index 33.6 Const General: cooperative, healthy appearing and comfortable Chest Chest palpation & inspection: normal inspection of the chest and normal palpation of entire chest wall Breast/axilla inspection: normal inspection of the breasts and normal inspection of the axillae Breast/axilla palpation: normal palpation of the breasts, normal palpation of the axillae and no axillary lymphadenopathy Resp Effort & Inspection: normal respiratory effort Auscultation: clear to auscultation bilaterally Percussion: percussion normal Cardio Palpation: normal PMI Rate: regular rate Rhythm: regular rhythm Heart sounds: no murmurs and no rubs Peripheral pulses: Peripheral pulses 2+ throughout GI Inspection: Yes normal to inspection Palpation (GI): Soft to palpation, nontender, no guarding, not rigid and No hepatosplenomegaly present Percussion: Yes normal to percussion Auscultation: normal bowel sounds Rectal Exam - Female: deferred General: Yes bladder normal to palpation External Female Exam: No lesion Speculum Exam - Vagina: normal appearance of the vagina, normal palpation, samantha l vaginal discharge and not erythematous Speculum Exam - Cervix: normal appearance of the cervix and normal palpation Bimanual exam- vagina & uterus: normal bimanual exam, normal palpation, uterine size normal, bladder normal to palpation, consistency normal and normal palpation Bimanual Exam- Adnexa, other: normal adnexae, no masses and no tenderness Assessment & Plan Assessment & Plan (1) Abnormal uterine bleeding (AUB): Code(s): N93.9 - Abnormal uterine and vaginal bleeding, unspecified Category: Medical Plan: GC and chlamydia taken CBC, TSH, prolactin, FSH/LH, HCG ordered and pelvic ultrasound recently done. Discussed with the patient the different causes of abnormal bleeding including thyroid disorders, uterine and ovarian pathology, endometrial hyperplasia, carcinoma and other potential causes. Discussed with the patient the work up including CBC (to r/o anemia), TSH, FSH/LH, prolactin, pelvic Ultrasound, endometrial biopsy to r/o endometrial pathology. All questions answered and the patient verbalized understanding. Instructed the patient to schedule an appointment for an endometrial biopsy in 2 weeks. (2) Uterine myoma: Code(s): D25.9 - Leiomyoma of uterus, unspecified Category: Medical Plan: Discussed with the patient the results of the ultrasound and the size of the myomas. Discussed with the patient risk of myosarcoma and symptoms that are caused by myomas including but not limited to pelvic pain, pressure symptoms, abnormal uterine bleeding. In addition discussed with the patient options of treatment for myomas including: Serial ultrasounds periodically to follow-up on the size of the myoma while targeting the treatment against fibroids related symptoms ( control pills, Mirena IUD, progesterone treatment, GnRH agonist/antagonist, uterine artery embolization or endometrial ablation) versus surgical treatment including hysterectomy and or myomectomy. All pros and cons, risks and benefits of all options were discussed with the patient. Orders: Orders TSH reflex Free T4 Today N93.9 - Abnormal uterine and vaginal bleeding, unspecified Prolactin Today N93.9 - Abnormal uterine and vaginal bleeding, unspecified HCG Quantitative Today N93.9 - Abnormal uterine and vaginal bleeding, unspecified Complete Blood Count no Diff Today N93.9 - Abnormal uterine and vaginal bleeding, unspecified Lutenizing Hormone Today N93.9 - Abnormal uterine and vaginal bleeding, unspecified Follicle Stimulating Hormone Today N93.9 - Abnormal uterine and vaginal bleeding, unspecified Coding Level of Care Code New Pt Level 3 (88505) Diagnoses Abnormal uterine bleeding (AUB) N93.9 Uterine myoma D25.9
== END 2023-09-10 15:28 | disposition home or self-care (01) ==
PROVIDERS: PCP Internal Medicine; Referring Provider Internal Medicine; Visit Provider Obstetrics & Gynecology
DX: N93.9 Abnormal uterine and vaginal bleeding, unspecified (principal); D25.9 Leiomyoma of uterus, unspecified
CPT/HCPCS: 99203

== ENCOUNTER 2023-09-10 14:50 | Outpatient (REF) | payer MEDICAID, SELFPAY ==
[2023-09-11 17:41] LABS: CT PCR NOT DETECTED (Not Detect.); NG PCR NOT DETECTED (Not Detect.)
== END 2023-09-10 14:51 | disposition home or self-care (01) ==
LOC: HO.LNP 14:50
PROVIDERS: PCP Internal Medicine; Visit Provider Obstetrics & Gynecology
DX: N93.9 Abnormal uterine and vaginal bleeding, unspecified (principal); D25.9 Leiomyoma of uterus, unspecified
CPT/HCPCS: 0353U; 99202

== ENCOUNTER 2024-03-05 09:50 | Outpatient (REF) | payer MEDICAID, SELFPAY ==
[2024-03-05 14:30] LABS: MANUAL DIFF FLAG NO
[2024-03-05 14:33] LABS: Basophils Percent Auto 0.3 % (0-2); Eosinophils Absolute Auto 0.1 X10*3/uL (0.0-0.4); Eosinophils Percent Auto 0.8 % (0-4); Hematocrit 37.8 % (37.0-47.0); Hemoglobin 11.6 g/dl (12.0-16.0); Imm Gran Abs Auto 0.02 X10*3/uL (0.00-0.03); Imm Gran Pct Auto 0.3 % (0.0-0.4); Lymphocytes Absolute Auto 1.9 X10*3/uL (1.2-4.9); Lymphocytes Percent Auto 31.7 % (20-40); Mean Corpuscular HGB Conc 30.7 g/dl (31.0-35.0); Mean Corpuscular Hemoglobin 25.1 pg (27.0-33.0); Mean Corpuscular Volume 81.6 fL (80.0-98.0); Mean Platelet Volume 11.5 fL (9.4-12.3); Monocytes Absolute Auto 0.4 X10*3/uL (0.1-1.2); Monocytes Percent Auto 6.9 % (2-11); Neutrophils Absolute Auto 3.7 x10*3/uL (2.0-8.3); Platelet Count 238 X10*3/uL (160-400); Red Blood Count 4.63 X10*6/uL (4.20-5.50); Red Cell Distribution Width 18.9 % (11.0-16.0); White Blood Count 6.1 X10*3/uL (4.8-10.8)
[2024-03-05 15:02] LABS: Alanine Aminotransferase 40 U/L (0-31); Alkaline Phosphatase 113 U/L (39-117); Anion Gap 11 (12-20); Aspartate Amino Transferase 44 U/L (5-31); Bilirubin Total 0.9 mg/dL (0.0-1.0); Blood Urea Nitrogen 9 mg/dL (9-16); Calcium 9.1 mg/dL (8.4-10.2); Carbon Dioxide 28 mmol/L (22-29); Chloride 106 mmol/L (96-108); Cholesterol 155 mg/dL (<200); Estimated Glomerular Filt Rate > 60; Glucose Random 89 mg/dL (60-115); HDL Cholesterol 43 mg/dL (>40); Iron 44 mcg/dL (30-160); LDL Cholesterol Calculated 88 mg/dL (<100); Percent Iron Saturation 11 % (15-50); Potassium 3.9 mmol/L (3.3-5.1); Sodium 141 mmol/L (135-145); Total Iron Binding Capacity 390 mcg/dL (228-428); Total Protein 7.7 g/dL (6.5-8.0); Triglycerides 123 mg/dL (<150); Unsaturated Iron Binding 346 ug/dL
[2024-03-05 15:07] LABS: TSH reflex Free T4 4.18 uIU/mL (0.32-4.0)
[2024-03-08 12:12] LABS: TS Negative Control Passed; TS Panel A 0; TS Panel B 0; TS Positive Control Passed; TSpotTB Negative (Negative)
== END 2024-03-05 09:51 | disposition home or self-care (01) ==
LOC: HO.CHCLDS 09:50
PROVIDERS: Visit Provider Internal Medicine
DX: D50.8 Other iron deficiency anemias (principal); Z11.1 Encounter for screening for respiratory tuberculosis
CPT/HCPCS: 36415; 80053; 80061; 83540; 84439; 84443; 85025; 86481

== ENCOUNTER 2024-07-11 16:04 | Outpatient (REF) | payer MEDICAID, SELFPAY ==
--- OUTSIDE RECORDS SUMMARY | 2024-07-11 17:54 | XMS_ITS | Encounter Summary ---
Author Organization [employer] Address [address] [place] [id number] Care Team Providers Care Retail Salesperson Name Role Phone Rafat Ashraf MD Primary Care Prov ider Encounter Details Date Type Department Care Team ([facility] st Contact Info) Description 09/19/2022 Orders Only [facility] [address] [place] [address] Odilia Currie LPN Social History Tobacco Use Types Packs/Day Years Used Date Smoking Tobacco: Never Assessed Comments Unknown Sex and Gender Information Value Date Recorded Sex Assigned at Female 03/13/2022 10:16 AM EDT Legal Sex Female 10:16 AM EDT Gender Identity Female 03/13/2022 10:16 AM EDT Sexual Orientation Straight 03/13/2022 10 :16 AM EDT documented as of this encounter Plan of Treatment Not on file documented as of this encounter Visit Diagnoses Not on filedocumented in this encounter Care Teams Retail Salesperson Relationship Specialty Start Date End Date Rafat Ashraf MD [address] [place] [address] PCP - General Internal Medicine 09/30/19 documented as of this encounter
--- OUTSIDE RECORDS SUMMARY | 2024-07-11 17:54 | XMS_ITS | Clinical Summary ---
Author Organization [employer] Address [address] [place] [address] 7 [place] [address] Care Team Providers Care Bariatric Program Coordinator Name Role Phone Rafat Ashraf MD Primary Care Prov ider Allergies No known active allergies Medications Blood Pressure kit 1 kit in the morning. 1 kit 023 Active cetirizine (ZyrTEC) 10 MG tablet Take 1 tablet (10 mg) by mouth in the morning. 30 tablet 11 024 2024 Active Omeprazole 20 MG tablet delayed-release Take 20 mg by mouth in the morning. 90 tablet 3 024 2024 Active Semaglutide-Weigh t Management (Wegovy) 0.25 MG/0.5ML solution auto-injector Inject 0.25 mg under the skin 1 (one) time per week. 3 mL Active ferrous gluconate (Fergon) 324 (38 Fe) MG tabletIndications :Iron deficiency anemia secondary to inadequate dietary iron intake Take 1 tablet (324 mg) by mouth with breakfast. 30 tablet 3 Active docusate sodium (Colace) 100 MG capsule Take 1 capsule (100 mg) by mouth 2 times daily. 60 capsule 11 024 2024 Active levothyroxine (Synthroid, Levoxyl) 112 MCG tabletIndications :Acquired hypothyroidism Take 1 tablet (112 mcg) by mouth Once per day. 90 tablet 3 024 2024 Active Semaglutide-Weigh t Management (Wegovy) 1 MG/0.5ML solution auto-injector Inject 0.5 mL (1 mg) under the skin 1 (one) time per week. 2 mL 024 Active Zepbound 2.5 MG/0.5ML solution auto-injector INJECT 0.5 ML (2.5 MG) SUBCUTANEOUSLY ONCE PER WEEK 2 mL 025 Active nitrofurantoin, macrocrystal-mono hydrate, (Macrobid) 100 MG capsule Take 1 capsule (100 mg) by mouth 2 times daily for 5 days. 10 capsule 025 2024 Active phenazopyridine (Pyridium) 100 MG tabletIndications :Bladder Mucosa Irritation Take 1-2 tablets (100-200 mg) by mouth if needed in the morning, at noon, and at bedtime (Bladder spasms, UTI symptoms) for up to 2 days. 12 tablet 025 2024 Active Tirzepatide-Weigh t Management (Zepbound) 2.5 MG/0.5ML solution auto-injector Inject 0.5 mL (2.5 mg) under the skin 1 (one) time per week. 3 mL 025 2024 Discontinued Active Problems Problem Noted Date Diagnosed Date Obesity (BMI 35.0-39.9 without comorbidity) 02/12 Assessment & Plan (05/28/2024 10:02 AM EST): Lost about 15lbs, switched to zepbound, call back if any side effects reported Assessment & Plan (04/16/2024 9:26 AM EST): Patient tolerating wegovy, currently on the lowest dose, will increase it to 0.5mg, told starting May she will be switched to zepbound Assessment & Plan (03/05/2024 10:09 AM EDT): She has sleeve gastrectomy, will start on wegovy, risk vs benefits were discussed Gastroesophageal reflux disease without esophagi tis 10/03/2023 Assessment & Plan (10/03/2023 5:37 AM EDT): Symptoms improved, continue omeprazole, continue lifestyle modifications Right elbow pain 10/03/2023 Assessment & Plan (10/03/2023 5:39 AM EDT): Patient receiving physical therapy, symptoms have been improving, continue exercises, apply ice, take tylenol/ibuprofen as needed UTI symptoms 09/04/2023 Assessment & Plan (07/11/2024 2:27 PM EST): - UA in office (+) leuk, neg nitrites. Suspect hematuria 2/2 infx or start of menses - UA w/ reflex culture sent to lab - Tx with macrobid BID x 5 days. Reviewed med use and SE - May use pyridium PRN urinary symptoms - Encouraged good hydration, follow up precautions reviewed Assessment & Plan (09/04/2023 3:01 PM EDT): Drink plenty of water, do not hold urine Macrobid BID Pyridium 100mg Q 8hrs for 3 days UA and culture, patient to be contacted with results Screening for colon cancer 07/31/2023 Assessment & Plan (03/05/2024 10:08 AM EDT): Scheduled for , will follow up reccomendations Assessment & Plan (07/31/2023 10:36 AM EDT): Will place Gi referral Elevated blood pressure reading 01/23/2023 Assessment & Plan (09/04/2023 3:01 PM EDT): BP reading high today likely because patient is uncomfortable Monitor BP at home and f/u with PCP Assessment & Plan (07/31/2023 10:32 AM EDT): Has remained stable below 140/90, no changes will be made, continue low sodium diet and exercise as tolerated Assessment & Plan (01/23/2023 8:34 PM EDT): Will order a bp monitor, reinforced low sodium diet and exercise as tolerated, will follow up in 1month Acquired hypothyroidism 01/23/2023 Assessment & Plan (05/28/2024 10:01 AM EST): On oral thyroid replacement, clinically euthyroid, told to get blood work done for guidance of therapy Assessment & Plan (04/16/2024 9:21 AM EST): Not at target, will increase levothyroxine to 112mcg, repeat tsh in 6-8 weeks Assessment & Plan (03/05/2024 10:06 AM EDT): New labs will be ordered for guidance of therapy, she is clinically euthyroid Assessment & Plan (07/31/2023 10:33 AM EDT): No sign/symptoms of hypothyroidism, will order new tsh, will call with results Assessment & Plan (01/23/2023 8:35 PM EDT): On levothyroxine, clinically and chemically euthyroid, no changes will be made Iron deficiency anemia harinder cummings to inadequate dietary iron intake 01/23/2023 Assessment & Plan (05/28/2024 10:02 AM EST): On oral iron replacement, new labs sent for guidance of therapy Assessment & Plan (04/16/2024 9:22 AM EST): Told to restart ferrous sulfate, repeat test in 3-4 months, denied bleeding Assessment & Plan (07/31/2023 10:33 AM EDT): On ferrous sulfate, new labs will be ordered Assessment & Plan (01/23/2023 8:36 PM EDT): Continue oral iron replacement, labs reviewed. Anemia 02/20/2018 Assessment & Plan (03/05/2024 10:07 AM EDT): Will order cbc/iron for evaluation of current trend Encounters Date Type Department Care Team Description 07/11/2024 1:45 PM EST Office Visit [facility] [address] [place] [address] Lou Nay, PARACHUTE RIGGER UTI symptoms 07/11/2024 Travel 07/11/2024 Telephone [facility] [address] [place] [address] Rafat Ashraf MD Nurse Triage 06/19/2024 Refill [facility] [address] [place] [address] Rafat Ashraf MD 05/28/2024 9:45 AM EST Office Visit [facility] [address] [place] [address] Rafat Ashraf MD Iron deficiency anemia secondary to inadequate dietary iron intake (Primary Dx); Acquired hypothyroidism; Obesity (BMI 35.0-39.9 without comorbidity) 05/28/2024 Travel 05/27/2024 Telephone [facility] [address] [place] [address] Rafat Ashraf MD Chart Prep 05/27/2024 Orders Only [facility] [address] [place] [address] Rafat Ashraf MD 05/23/2024 Refill [facility] [address] [place] [address] Rafat Ashraf MD 04/28/2024 Orders Only [facility] [address] [place] [address] Rafat Ashraf MD 04/16/2024 8:30 AM EST Telemedicine [facility] [address] [place] [address] Rafat Ashraf MD Obesity (BMI 35.0-39.9 without comorbidity) (Primary Dx); Iron deficiency anemia secondary to inadequate dietary iron intake; Acquired hypothyroidism 04/16/2024 Travel 04/15/2024 Telephone [facility] [address] [place] [address] Rafat Ashraf MD chart prep from Last 3 Months Immunizations Name Administration Dates Next Due Hep B, adult 07/25/2013,02/09/2012,01/12/2012 Influenza Injectable Quadriv alant Preservative Free IIV4 MDCK 03/10/2021 MMR 02/09/2012,01/12/2012 Pfizer Covid-19 Vaccine 12+ 06/30/2020, Tdap 03/05/2024,11/16/2010 Family History Medical History Relation Name Comments Diabetes Father Dad Hypertension Father Dad Kidney disease Father Dad Arthritis Mother Self Miscarriages / Stillbirths Mother Self Relation Name Status Comments Father Dad Mother Self Social History Tobacco Use Types Packs/Day Years Used Date Smoking Tobacco: Never Smokeless Tobacco: Never Tobacco Cessation:Counseling Given: Not Answered Alcohol Use Standard Drinks/Week Comments Yes 0 (1 standard drink = 0.6 oz pur e alcohol) Depression Answer Date Recorded Patient Health Questionnaire-9 Score 1 07/19/2023 Patient Health Questionnaire-9 Score 1 07/19/2023 Last PHQ-9: Questionnaire Data Not on file 0 07/19/2023 Housing Stability Answer Date Recorded What is your housing situation today? I have randee sanders 02/27/[address] you li ve. Do you have problems with any of the following? None of the above 02/27/2024 Food Insecurity Answer Date Recorded Within the past 12 months, y ou worried that your food would run out before you got money to buy more: Never True 02/27/2024 Within the past 12 months,th e food you bought just didn't last and you didn't have enough money to get more: Never True Transportation Answer Date Recorded In the past 12 months, has l ack of transportation kept you from medical appts, meetings, work or from getting things needed for daily living? No 02/27/2024 Utilities Answer Date Recorded In the past 12 months, has t he electric, gas, oil or water company threatened to shut off services in your home? No 02/27/2024 Depression Answer Date Recorded Patient Health Questionnaire-2 Score 0 07/19/2023 Internet Access Answer Date Recorded Internet Access Q1 Yes 02/27/2024 Internet Access Q2 Not on file 02/27/2024 Comments No Sex and Gender Information Value Date Recorded Sex Assigned at Female 03/13/2022 10:16 AM EDT Legal Sex Female 10:16 AM EDT Gender Identity Female 03/13/2022 10:16 AM EDT Sexual Orientation Straight 03/13/2022 10 :16 AM EDT Last Filed Vital Signs Vital Sign Reading Time Taken Comments Blood Pressure 132/88 07/11/2024 1:55 PM EST Pulse 71 07/11/2024 1:51 PM EST Temperature 36.7 ??C (98.1 ??F) 07/11/2024 1:51 PM ES T Respiratory Rate 16 07/11/2024 1:51 PM EST Oxygen Saturation 99% 07/11/2024 1:51 PM EST Inhaled Oxygen Concentration - - Weight 80.3 kg (177 lb) 07/11/2024 1:51 PM EST Height 157.5 cm (5' 2 ) 07/11/2024 1:51 PM EST Body Mass Index 32.37 07/11/2024 1:51 PM EST Plan of Treatment Health Maintenance Due Date Last Done Comments CT Colonography 1972 Colonoscopy 1972 Colorectal Cancer Screening 1970 FIT DNA/Cologuard 1972 FIT 1972 FOBT 1972 Sigmoidoscopy 1972 Alcohol/Substance Use Screening 1984 Pneumococcal Vaccine: 50+ Years (1 of 1 - PCV) 2022 Zoster Vaccines (1 of 2) 2022 Mammogram 01/10/2024 01/09/2022, 08/21/2018 COVID-19 Vaccine ( season) 2024 05/20/2021, 06/30/2020, 06/09/2020 Influenza Vaccine (#1) 2024 03/10/2021 Depression Screening 07/18/2024 07/19/2023, 07/19/19 Family Planning (PISQ) 08/13/2024 08/14/2023 SDOH Screening 02/26/2025 02/27/2024 Tobacco Screening 07/11/2025 07/11/2024 Cervical Cancer Screening 08/13/2028 HPV/Cotest 08/13/2028 08/14/2023 Pap Smear 08/13/2028 08/14/2023 Lipid Panel 03/05/2029 03/05/2024, 07/12, 01/18/2023, Additional history exists HIV Screening 07/25/2033 DTaP/Tdap/Td Vaccines (3 - Td or Tdap) 03/05/2034 03/05/2024, 11/16/2010 RSV Patients and Patients Aged 60 years or older (1 - 1-dose 75+ series) 10/20/2047 Hepatitis B Vaccines Completed 07/25/2013, 02/09/2012, 01/12/2012 Hepatitis C Screening Completed 11/22/2021 HIB Vaccines Aged Out No longer eligi ble based on patient's age to complete this topic HPV Vaccines Aged Out No longer eligi ble based on patient's age to complete this topic Hepatitis A Vaccines Aged Out No long er eligible based on patient's age to complete this topic IPV Vaccines Aged Out No longer eligi ble based on patient's age to complete this topic Meningococcal Vaccine Aged Out No janice lanie eligible based on patient's age to complete this topic RSV under 20 months Aged Out No longe r eligible based on patient's age to complete this topic Rotavirus Vaccines Aged Out No longer eligible based on patient's age to complete this topic Procedures Procedure Name Priority Date/Time Associated Diagnosis Comments POCT URINALYSIS DIPSTICK Routine 07/11/2024 2:05 PM EST UTI symptoms LIPID PANEL, STANDARD Routine 03/05/2024 9:53 AM EDT Other iron deficiency anemia HPV MRNA E6/E7 REFLEX TO HPV 16, 18/45 Routine 08/14/2023 1:34 PM EDT PAP SMEAR Routine 08/14/2023 1:34 PM EDT Cervical cancer screening MAMMOGRAM GENERIC Routine 01/09/2022 11: 43 AM EDT ZZZ HISTORICAL HEPATITIS C AB W/REFL TO HCV RNA, QN, PCR Routine 11/22/2021 9:22 AM EDT from Last 3 Months or Most Recently Relevant to Health Maintenance Results * (ABNORMAL) POCT Urinalysis (07/11/2024 2:05 PM EST) Color, UA Yellow Clarity, UA Clear Glucose, UA Negative Bilirubin, UA Negative Ketones, UA Negative Spec Grav, UA 1.025 Blood, UA Positive(A) Negative, None Detected Comment:small pH, UA 6.5 Protein, UA 1+ 70+ Comment:30mg Urobilinogen, UA 1.0 Leukocytes, UA Few 15(A) Negative, Rare, Trace Nitrite, UA Negative Negative, None Detected Appearance, UA clear QC Media Lot # [id number] Lot# Expiration Date Urine 07/11/2024 2:05 PM EST Nay INIGUEZP POINT OF CARE TEST ENTER/EDIT ORDERABLES Final Result * Lipid Panel, Standard (03/05/2024 9:53 AM EDT) Triglycerides 123 <150 mg/dL [facility] Comment:Desirable Triglyceri de: less than 150 mg/dLBorderline High Triglyceride 150-199 mg/dLHigh Triglyceride: 200-499 mg/dLVery High Triglyceride: greater than or equal to 5OO mg/dL Cholesterol 155 <200 mg/dL [facility] Comment:Desirable Cholestero l: less than 200 mg/dLBorderline High Cholesterol: 200-239 mg/dLHigh Cholesterol: greater than 239 mg/dL LDL Cholesterol Calculated 88 <100 mg/dL [facility] Comment:Desirable LDL: less than 100 mg/dLNear Optimal/Above Optimal LDL: 110- 129 mg/dLBorderline High LDL: 130-159 mg/dLHigh LDL: 160-189 mg/dLVery High LDL: greater than or equal to 190 mg/dL HDL Cholesterol 43 >40 mg/dL [facility] Comment:Desirable HDL: great er than 40 mg/dL Note: This HDL assay may give artificially low results in patients with liver disease. Blood Venous blood specimen / Unknown 03/05/2024 9:53 AM EDT 03/05/2024 2:21 PM EDT Rafat Chino MD LAB BLOOD ORDERABL ES Final Result Performing Organization Address [facility]/ZIP Co de Phone Number [facility] [address] [place] [address] [phone] * HPV mRNA E6/E7 w/Reflex to HPV Genotypes 16, 18/45 (08/14/2023 1:34 PM EDT) HPV nRNA E6/E7 Not Detected Not Detected [facility] Comment:Methodology: Transcr iption-Mediated AmplificationThis assay detects E6/E7 viral messenger RNA (mRNA) from 14high-risk HPV types (16,18,31,33,35,39,45,51,52,56,58,59,66,68).Cervical sources are required for HPV testing.If a vaginal source from a patient who has had atotal hysterectomy with removal of cervix wassubmitted, please contact the testing laboratoryfor alternative testing options.For additional information, please refer tohttp://education.b3 bio/faq/NPT541w1(This link if provided for information/educational purposes only.)THIS TEST WAS PERFORMED AT:[facility] [place] [phone] ARIAS MD HPV mRNA E6/E7 [facility] HPV 16 RNA [facility] HPV 18/45 RNA [facility] 08/14/2023 1:34 PM EDT 08/16/2023 6:30 AM EDT Christy CHAVARRIA LAB CYTOLOGY ORDERABLES F inal Result Performing Organization Address [facility]/ZIP Co de Phone Number [facility] [address] [place] [address] [phone] * Pap Smear (08/14/2023 1:34 PM EDT) Swab Cervix uteri structure / Unknown 08/14/2023 1:34 PM EDT 08/16/2023 6:30 AM EDT Narrative [facility] - 09/01/2023 4:23 PM EDT ----- ------- Name: Floridalma Abel I ?Age/Sex: 52/F ? : 1970 Unit#: [id number] ?? Attend Dr: CHRISTY DIAS CNM ?Re08/14/23 ?Status: DEP REF ? Location: HO.LNP ?Disch: ? ----- ------- SPEC : [id number] ? RECD: 08/16/23 ? STATUS: ??SOUT ? REQ NUM: [id number] ? BONITA: 08/14/23-1333 ? SUBM DR: CHRISTY DIAS CNM ? ENTERED: ??08/16/23 ?SP TYPE: Pap Smr ?OTHR : ? ORDERED: ??Pap Smear ? Interpretation ?? Satisfactory for evaluation. ?? Negative for intraepithelial lesion or malignancy. ?? Coccobacilli consistent with shift in vaginal kya. ?? Fungal organisms consistent with Aimee species. ? HPV mRNA E6/E7: ?NOT DETECTED ? This assay detects E6/E7 viral messenger RNA (mRNA) from 14 high-risk HPV types (16, 18, ?? 31, 33, 35, 39, 45, 51, 52, 56, 58, 59, 66, 68) ? HPV testing performed by [facility], [place], [place]. ??See reference laboratory ?? portion of the EMR for entire report. ?Clinical Information LMP: Unknown date Previous PAP test: Unknown date/findings ? Material Received ?? ThinPrep-Cervical ----- ------- Signed (signature on file) Aide Monroy Edwige 09/01/233 ? ----- ------- ? END OF REPORT ? Christy Dias CNM LAB CYTOLOGY ORDERABLES F inal Result Performing Organization Address [facility]/ZIP Co de Phone Number [facility] [address] [place] [address] [phone] * Mammography Report 1 (01/09/2022 11:43 AM EDT) Anatomical Region Laterality Modality Breast Bilateral Mammography 01/09/2022 11:4 3 AM EDT Narrative 01/10/2022 1:32 PM EDT Refer to the Notes tab for result details [facility] Procedure: Mammography Report 1 Procedure Note ProviderRosas MD - 08/06/2022 Refer to the Notes tab for result details [facility] Procedure: Mammography Report 1 Rafat Chino MD IMG BI PROCEDURES Final Result * HEPATITIS C AB W/REFL TO HCV RNA, QN, PCR (11/22/2021 9:22 AM EDT) HEPATITIS C ANTIBODY NON-REACT RAYMOND NON-REACT RAYMOND [facility] INDEX 0.08 <1.00 [facility] Comment: ?? HCV antibody was non-reactive. There is no laboratory ?? evidence of HCV infection. ?? In most cases, no further action is required. However, if recent HCV exposure is suspected, a test for HCV RNA (test code 63866) is suggested. ?? For additional information please refer to http://education.b3 bio/faq/ZXR54u7 (This link is being provided for informational/ educational purposes only.) ?? 11/22/2021 9:22 AM EDT Rafat Chino MD HISTORICAL/NON ORD ERABLE LABS Final Result [facility] [address] from Last 3 Months or Most Recently Relevant to Health Maintenance [place] [address] [place] [address] C3 Care Teams Bariatric Program Coordinator Relationship Specialty Start Date End Date Rafat Ashraf MD [address] [place] [phone] PCP - General Internal Medicine 09/30/19
--- OUTSIDE RECORDS SUMMARY | 2024-07-11 17:54 | XMS_ITS | Encounter Summary ---
Author Organization [employer] Address [address] [facility] 7 [place] [address] Care Team Providers Care Dumping Machine Operator Name Role Phone Rafat Ashraf MD Primary Care Prov ider Reason for Visit * Reason Comments Med Refill Encounter Details Date Type Department Care Team ([facility] st Contact Info) Description 05/23/2024 Refill C [facility] [address] [place], [place] [phone] Rafat Ashraf MD [address] [place] [address] Social History Tobacco Use Types Packs/Day Years Used Date Smoking Tobacco: Never Smokeless Tobacco: Never Alcohol Use Standard Drinks/Week Comments Yes 0 [...] AM EDT documented as of this encounter Miscellaneous Notes * Telephone Encounter - Rafat Chino MD - 05/27/2024 9:53 AM EST Zepbound sent documented in this encounter Plan of Treatment Not on file documented as of this encounter Visit Diagnoses Not on filedocumented in this encounter Additional Health Concerns Assessment Noted Time PHQ-9 Depression Total Score: 1 07/19/19 24 2:22 PM EST documented as of this encounter Care Teams Dumping Machine Operator Relationship Specialty Start Date End Date Rafat Ashraf MD [address] [place] [phone] PCP - General Internal Medicine 09/30/19 documented as of this encounter
--- OUTSIDE RECORDS SUMMARY | 2024-07-11 17:54 | XMS_ITS | Encounter Summary ---
Author Organization [employer] Address [address] [facility] [address] [place] [address] Care Team Providers Care Nuclear Weapons Specialist Name Role Phone Rafat Ashraf MD Primary Care Prov ider Encounter Details Date Type Department Care Team ([facility] st Contact Info) Description 07/11/2024 1:45 PM EST Office Visit [facility] [address] [place], [place] [phone] Nya Blake, HOSPICE COMMUNITY LIAISON [address] [place] [address] UTI symptoms Social History Tobacco Use Types Packs/Day Years [...] AM EDT documented as of this encounter Last Filed Vital Signs Vital Sign Reading [...] Mass Index 32.37 07/11/2024 1:51 PM EST documented in this encounter Miscellaneous Notes * Assessment & Plan Note - FERNANDA Patiño - 07/11/2024 2:27 PM ESTAssociated Problem(s): UTI symptoms - UA in office (+) leuk, neg nitrites. Suspect hematuria 2/2 infx or start of menses - UA w/ reflex culture sent to lab - Tx with macrobid BID x 5 days. Reviewed med use and SE - May use pyridium PRN urinary symptoms - Encouraged good hydration, follow up precautions reviewed documented in this encounter Plan of Treatment Scheduled Orders Name Type Priority Associated Diagnoses Orde r Schedule Urinalysis, Complete, with Reflex to Culture Lab Routine UTI symptoms Expected: 07/11/2024 (Approximate), Expires: 07/11/2025 documented as of this encounter Procedures Procedure Name Priority Date/Time Associated Diagnosis Comments POCT URINALYSIS DIPSTICK Routine 07/11/2024 2:05 PM EST UTI symptoms documented in this encounter Results * (ABNORMAL) POCT Urinalysis (07/11/2024 2:05 [...] Date Urine 07/11/2024 2:05 PM EST Nay Blake HOSPICE COMMUNITY LIAISON POINT OF CARE TEST ENTER/EDIT ORDERABLES Final Result documented in this encounter Visit Diagnoses Diagnosis UTI symptoms documented in this encounter Additional Health Concerns Assessment Noted Time PHQ-9 Depression Total Score: 1 07/19/19 24 2:22 PM EST documented as of this encounter Care Teams Nuclear Weapons Specialist Relationship Specialty Start Date End Date Rafat Ashraf MD [address] [place] [id number] PCP - General Internal Medicine 09/30/19 documented as of this encounter
--- OUTSIDE RECORDS SUMMARY | 2024-07-11 17:54 | XMS_ITS | Encounter Summary ---
Author Organization [facility] Address [address] [place], [place] [phone] Phone Care Team Providers Care Agency Legal Counsel Name Role Phone Unavailable Primary Care Provider Unavailabl e Encounter Details Date Type Department Care Team (Late st Contact Info) Description 04/30/2012 Documentation [facility] [address] [place] [address] Family Medicine, Physician [facility] [place] [address] Social History Tobacco Use Types Packs/Day Years Used Date Smoking Tobacco: Never Assessed Comments Unknown Sex and Gender Information Value Date Recorded Sex Assigned at Not on file Legal Sex Female 3:58 PM EDT Gender Identity Not on file Sexual Orientation Not on file documented as of this encounter Plan of Treatment Not on file documented as of this encounter Visit Diagnoses Not on filedocumented in this encounter
--- OUTSIDE RECORDS SUMMARY | 2024-07-11 17:54 | XMS_ITS | Encounter Summary ---
Author Organization [employer] Address [address] [place] [address] Care Team Providers Care Coil Repair Technician Name Role Phone Rafat Ashraf MD Primary Care Prov ider Encounter Details Date Type Department Care Team (Latest Contact Info) Description 07/11/2024 Travel Social History Tobacco Use Types Packs/Day Years [...] documented as of this encounter Care Teams Coil Repair Technician Relationship Specialty Start Date End Date Rafat Ashraf MD [address] [place] [phone] PCP - General Internal Medicine 09/30/19 documented as of this encounter
--- OUTSIDE RECORDS SUMMARY | 2024-07-11 17:54 | XMS_ITS | Clinical Summary ---
Author Organization [facility] Address [address] [place] [address] Phone Care Team Providers Care Ironer Hand Name Role Phone Unavailable Primary Care Provider Unavailabl e Social History Tobacco Use Types Packs/Day Years Used Date Smoking Tobacco: Never Assessed Comments Unknown Sex and Gender Information Value Date Recorded Sex Assigned at Not on file Legal Sex Female 3:58 PM EDT Gender Identity Not on file Sexual Orientation Not on file Plan of Treatment Health Maintenance Due Date Last Done Comments MMR Vaccines (1 of 1 - Stand tess series) 1973 Varicella Vaccines (1 of 2 - 13+ 2-dose series) 1985 DTaP,Tdap,and Td Vaccines (1 - Tdap) 1990 Hepatitis B Vaccines (1 of 3 - 19+ 3-dose series) 10/20/1991 Influenza Vaccines (#1) 2023 COVID-19 Vaccine (2023-2 5 season) 2024 HIB Vaccines Aged Out No longer eligi [...] on patient's age to complete this topic Men B Vaccine Aged Out No longer elig ible based on patient's age to complete this topic Meningococcal Vaccine Aged Out No janice lanie eligible based on patient's age to complete this topic Pneumococcal Vaccine Aged Out No long er eligible based on patient's age to complete this topic
--- OUTSIDE RECORDS SUMMARY | 2024-07-11 17:54 | XMS_ITS | Encounter Summary ---
Author Organization [employer] Address [address] [place] [address] Care Team Providers Care Community Service Technician Name Role Phone Rafat Ashraf MD Primary Care Prov ider Encounter Details Date Type Department Care Team ([facility] st Contact Info) Description 04/25/2022 Orders Only [facility] [address] [place], [place] [phone] Rafat Ashraf MD [address] [place] [address] Iron deficiency anemia secondary to inadequate dietary iron intake (Primary Dx) Social History Tobacco Use Types Packs/Day Years [...] documented as of this encounter Visit Diagnoses Diagnosis Iron deficiency anemia secondary to inadequate dietary iron intake- Primary documented in this encounter Care Teams Community Service Technician Relationship Specialty Start Date End Date Rafat Ashraf MD [address] [place] [address] PCP - General Internal Medicine 09/30/19 documented as of this encounter
--- OUTSIDE RECORDS SUMMARY | 2024-07-11 17:54 | XMS_ITS | Continuity of Care Document ---
Author Organization [facility] Audra macdonald[employer]aging Advant[employer] [facility] Address [address] [place] [address], [address] [address]- Care Team Providers Care Health Clinician Name Role Phone Vernon Chino MD, Rafat Primary Care Phys [facility] [id number] Date(s): 05/28/24 - 06/27/24 [facility] Humezaire JonesImaging [employer] [address], [address] [place], [place] [address] Attending Physician: Lety Paulson Admitting Physician: Lety Paulson Referring Physician: Admtr [id number] Encounter Type: Triage Allergies, Adverse Reactions, Alerts No Known Allergies Medications Colace sodium 100 mg oral capsule 100 mg, 1, capsule, By Mouth, 2 times a day, PRN, # 20 capsule, Refills 0, Tot. Refills 0, Maintenance, for constipation, 05/13/24 11:23:00 AM EST, Route to Pharmacy Electronically, [facility]/pharmacy #[id number], Partial fill upon patient request if the prescription is for a schedule II opioid drug., 157, cm,05/13/24 8:39:00 EST, Height, 88, kg, 05/13/24 8:39:00 EST, Dry Weight Start Date: 05/13/24 Status: Ordered Quantity: 20.0 Unit: capsule Repeat number: 1 Ferrous Sulfate ER By Mouth, Daily, Refills 0, Maintenance, 04/30/24 8:08:00 AM EST, Partial fill upon patient requestif the prescription is for a schedule II opioid drug. Start Date: 04/30/24 Status: Ordered Repeat number: 1 levothyroxine 0.1 mg oral tablet 1 tablet = 100 mcg, By Mouth, Daily, 0 Refills, Maintenance, 04/30/24 8:20:00 AM EST, Partial fill upon patient request if the prescription is for a schedule II opioid drug. Start Date: 04/30/24 Status: Ordered Repeat number: 1 Multivitamin 1 tablet, By Mouth, 0 Refills, Maintenance, 03/20/24 4:29:00 PM EST, Partial fill upon patient request if the prescription is for a schedule II opioid drug. Start Date: 03/20/24 Status: Ordered Repeat number: 1 Omeprazole = 20 mg, By Mouth, Daily in AM, 0 Refills, Maintenance, 03/20/24 4:30:00 PM EST, Partial fill upon patient request if the prescription is for a schedule II opioid drug. Start Date: 03/20/24 Status: Ordered Repeat number: 1 Wegovy (0.25 mg dose) subcutaneous solution = 0.25 mg, Subcutaneous Injection, Every Sunday, 0 Refills, Maintenance, 04/30/24 8:09:00 AM EST, Partial fill upon patient request if the prescription is for a schedule II opioid drug. Start Date: 04/30/24 Status: Ordered Repeat number: 1 Problem List Condition Confirmation Course Effective Dates Status Health St atus Informant GERD (gastroesophageal reflux disease) Confirmed Active Hypothyroid Confirmed Active Mixed urinary incontinence Confirmed Active Encounter for screening colonoscopy Confirmed Active Severe obesity (BMI 35.0-39.9) with comorbidity Confirmed Active Social History Social History Type Response Smoking Status Never smoker entered on: 11/12/17 Sex Sex Representation Female (finding) Implantable Device List Procedure Provider Procedure Date Device Type Site Transvaginal Tape Cysto Jane Theodore DO 05/13/24 Unknown Urethra Device Identifier Serial Number Lot or Batch Number Manufacturing Date Expiration Date Distinct Identification Code MRI Safety Implantable Status Assigning Authority Unknown [id number] Unknown 02/24/27 Unknown Unknown Active Unknown Patient Care team information Care Team Personnel Name: Rafat Ashraf MD Position: [facility] Outreach Member Role: PCP Address: [address] [place] [id number] Telecom: Care Team Related Persons Name: MONA AMES Name: MARCOS HENDRICKS Name: MARCOS HENDRICKS Insurance Providers Guarantor name: [facility] Information #: 1 Payer: [id number] Member Number: NA Policy Number: NA Group Number: [id number]
--- OUTSIDE RECORDS SUMMARY | 2024-07-11 17:54 | XMS_ITS | Encounter Summary ---
Author Organization [employer] Address [address] [facility] 7 [place] [address] Care Team Providers Care Preflight Mechanic Name Role Phone Rafat Ashraf MD Primary Care Prov ider Reason for Visit * Reason Comments Med Refill Encounter Details Date Type Department Care Team ([facility] st Contact Info) Description 06/19/2024 Refill [facility]S [address] [place], [place] [phone] Rafat Ashraf MD [address] [place] [address] Social History Tobacco Use Types Packs/Day Years [...] documented as of this encounter Care Teams Preflight Mechanic Relationship Specialty Start Date End Date Rafat Ashraf MD [address] [place] [address] PCP - General Internal Medicine 09/30/19 documented as of this encounter
--- OUTSIDE RECORDS SUMMARY | 2024-07-11 17:54 | XMS_ITS | Encounter Summary ---
Author Organization [employer] Address [address] [facility] 7 [place] [address] Care Team Providers Care Hammer Smith Name Role Phone Rafat Ashraf MD Primary Care Prov ider Reason for Visit * Reason Onset Date Comments Nurse Triage 07/11/2024 Encounter Details Date Type Department Care Team ([facility] st Contact Info) Description 07/11/2024 Telephone [facility] MED & PEDS [address] [place] [address] Rafat Ashraf MD [address] [place] [address] Nurse Triage Social History Tobacco Use Types Packs/Day Years [...] encounter Miscellaneous Notes * Telephone Encounter - Sushma Alvares RN - 07/11/2024 1:14 PM EST Images from the original note were not included. Call returned to Floridalma Abel to triage below. Reports having some pain with passing urine x 1 day. No dark color, odor or cloudy. Having frequency and urgency. No vaginal discharge. Pt denies any pelvic or flank pain. Pt denies any fever, N/V. Pt advised of disposition, agrees to sick onsite today for exam. Reviewed home care advise, ER precautions and reasons to call back. Protocol Used: Urination Pain - Female (Adult) Protocol-Based Disposition: See in Office or Video Visit Today Future Appointments Date Time Provider Department Center 07/11/2024 1:45 PM FERNANDA Patiño [facility] Insurance verified as active per [facility]. Video visit offer not recorded Positive Triage Question: * Painful urination AND EITHER frequency or urgency * All higher-acuity triage questions were negative Care Advice Discussed: * Reassurance and Education - Possible Urine Infection * Drink Extra Fluids * Reasons To Call Back - Fever or back pain occurs - You become worse documented in this encounter Plan of Treatment Not on file documented as of this encounter Visit Diagnoses Not on filedocumented in this encounter Additional Health Concerns Assessment Noted Time PHQ-9 Depression Total Score: 1 07/19/19 24 2:22 PM EST documented as of this encounter Care Teams Hammer Smith Relationship Specialty Start Date End Date Rafat Ashraf MD [address] [place] [address] PCP - General Internal Medicine 09/30/19 documented as of this encounter
[2024-07-11 17:57] LABS: Appearance Urine Cloudy; Color Urine Yellow; Glucose Urine UA Negative (Negative); Leukocyte Esterase Urine Moderate (2+) (Negative); Nitrite Urine Negative (Negative); PH 6.5 (5.0-9.0); Specific Gravity - Urine 1.025 (1.005-1.025); UMIC TRIGGER UACC YES; Urine Blood Small (1+) (Negative); Urine Ketones Negative (Negative); Urine Protein Trace mg/dL (Neg-Trace)
[2024-07-11 18:03] LABS: Bacteria Urine None Seen (None Seen); Hyaline Casts Urine 0-2 /LPF (0-2); UACC Culture Trigger YES; WBC Urine >50 /HPF (0-5)
== END 2024-07-11 16:05 | disposition home or self-care (01) ==
LOC: HO.CHCLNP 16:04
PROVIDERS: Visit Provider Registered Nurse
DX: R39.9 Unspecified symptoms and signs involving the genitourinary system (principal)
CPT/HCPCS: 81001; 87086

== ENCOUNTER 2024-09-23 10:52 | Outpatient (REF) | payer MEDICAID, SELFPAY ==
--- OUTSIDE RECORDS SUMMARY | 2024-09-23 12:17 | XMS_ITS | Encounter Summary ---
Author Organization [employer] Address [address] [place] [address] [address] [place] [address] Care Team Providers Care Operations And Maintenance Supervisor Name Role Phone Rafat Ashraf MD Primary Care Prov ider Encounter Details Date Type Department Care Team ([facility] st Contact Info) Description 09/19/[address] [facility] CH[facility] MED & PEDS [address] [place] [address] Odilia Currie LPN Social History Tobacco Use [...] on filedocumented in this encounter Care Teams Operations And Maintenance Supervisor Relationship Specialty Start Date End Date Rafat Ashraf MD [address] [place] [address] PCP - General Internal Medicine 09/30/19 documented as of this encounter
--- OUTSIDE RECORDS SUMMARY | 2024-09-23 12:17 | XMS_ITS | Clinical Summary ---
Author Organization [employer] Address [address] [place] [address] 7 [place] [address] Care Team Providers Care Computer Specialist Name Role Phone Rafat Ashraf MD Primary Care Prov ider Allergies No known active allergies Medications Blood Pressure kit 1 kit in the morning. 1 kit 023 Active Tirzepatide-Weig ht Management (Zepbound) 2.5 MG/0.5ML solution auto-injector Inject 0.5 mL (2.5 mg) under the skin 1 (one) time per week. 3 mL Active Omeprazole 20 MG tablet delayed-release Take 1 tablet (20 mg) by mouth Once per day. 90 tablet 2025 Active levothyroxine (Synthroid, Levoxyl) 112 MCG tabletIndication s:Acquired hypothyroidism Take 1 tablet (112 mcg) by mouth Once per day. 90 tablet 2025 Active ferrous gluconate (Fergon) 324 (38 Fe) MG tabletIndication s:Iron deficiency anemia secondary to inadequate dietary iron intake Take 1 tablet (324 mg) by mouth with breakfast. 30 tablet Active docusate sodium (Colace) 100 MG capsule Take 1 capsule (100 mg) by mouth 2 times daily. 60 capsule 2025 Active cetirizine (ZyrTEC) 10 MG tablet Take 1 tablet (10 mg) by mouth in the morning. 30 tablet 11 024 2024 Discontinued Omeprazole 20 MG tablet delayed-release Take 20 mg by mouth in the morning. 90 tablet 3 024 2024 Discontinued(R eorder (will not trigger notification to Pharmacy)) Semaglutide-Weig ht Management (Wegovy) 0.25 MG/0.5ML solution auto-injector Inject 0.25 mg under the skin 1 (one) time per week. 3 mL 024 2024 Discontinued ferrous gluconate (Fergon) 324 (38 Fe) MG tabletIndication s:Iron deficiency anemia secondary to inadequate dietary iron intake Take 1 tablet (324 mg) by mouth with breakfast. 30 tablet 3 024 2024 Discontinued(R eorder (will not trigger notification to Pharmacy)) docusate sodium (Colace) 100 MG capsule Take 1 capsule (100 mg) by mouth 2 times daily. 60 capsule 11 024 2024 Discontinued(R eorder (will not trigger notification to Pharmacy)) levothyroxine (Synthroid, Levoxyl) 112 MCG tabletIndication s:Acquired hypothyroidism Take 1 tablet (112 mcg) by mouth Once per day. 90 tablet 3 024 2024 Discontinued(R eorder (will not trigger notification to Pharmacy)) Semaglutide-Weig ht Management (Wegovy) 1 MG/0.5ML solution auto-injector Inject 0.5 mL (1 mg) under the skin 1 (one) time per week. 2 mL 024 2024 Discontinued Zepbound 2.5 MG/0.5ML solution auto-injector INJECT 0.5 ML (2.5 MG) SUBCUTANEOUSLY ONCE PER WEEK 2 mL 025 2024 Discontinued(R eorder (will not trigger notification to Pharmacy)) Active Problems Problem Noted Date Diagnosed Date [...] without esophagi tis 10/03/2023 Assessment & Plan (09/23/2024 9:22 AM EDT): Controlled with oral therapy, continue lifestyle changes, call back if worsening Assessment & Plan (10/03/2023 5:37 AM EDT): [...] 1month Acquired hypothyroidism 01/23/2023 Assessment & Plan (09/23/2024 9:25 AM EDT): Clinically euthyroid, new labs ordered for guidance of therapy Assessment & Plan (05/28/2024 10:01 AM EST): [...] changes will be made Iron deficiency anemia secon zoila to inadequate dietary iron intake 01/23/2023 Assessment & Plan (09/23/2024 9:25 AM EDT): New labs ordereed for evaluation Assessment & Plan (05/28/2024 10:02 AM EST): [...] Encounters Date Type Department Care Team Description 09/23/2024 8:45 AM EDT Telemedicine [facility] [address] [place] [address] Rafat Ashraf MD Gastroesophageal reflux disease without esophagitis (Primary Dx); Acquired hypothyroidism; Iron deficiency anemia secondary to inadequate dietary iron intake 09/22/2024 Travel 09/10/2024 Telephone [facility] [address] [place] [address] Rafat Ashraf MD Insurance 09/10/2024 Travel 08/15/2024 Refill [facility] [address] [place] [address] Rafat Ashraf MD 07/25/2024 Population Health Risk Score [facility] Department [address] [place] [address] Provider, Population Health Generic 07/18/2024 Refill [facility] [address] [place] [address] Rafat Ashraf MD 07/11/2024 1:45 PM EST Office Visit [facility] [address] [place] [address] Nay Blake FNP UTI symptoms 07/11/2024 Orders Only [facility] [address] [place] [address] Nay Blake FNP 07/11/2024 Travel 07/11/2024 Telephone [facility] [address] [place] [address] Rafat Ashraf MD Nurse Triage from Last 3 Months Immunizations Name Administration [...] Answer Date Recorded Patient Health Questionnaire-9 Score 0 09/23/2024 Patient Health Questionnaire-9 Score 0 09/23/2024 Last PHQ-9: Questionnaire Data Not on file 0 09/23/2024 Housing Stability Answer Date Recorded What is your housing situation today? I have randeenida sanders 02/27/[address] you [...] Date Recorded Patient Health Questionnaire-2 Score 0 09/23/2024 Internet Access Answer Date Recorded Internet Access [...] 1970 Sigmoidoscopy 1972 Alcohol/Substance Use Screening 1984 Family Planning (PISQ) 10/20/1987 Pneumococcal Vaccine: 50+ Years (1 of 1 - PCV) 2022 Zoster Vaccines (1 of 2) 2022 Mammogram 01/10/2024 01/09/2022, 08/21/2018 COVID-19 Vaccine ( season) 2024 05/20/2021, 06/30/2020, 06/09/2020 Influenza Vaccine (#1) 2024 03/10/2021 SDOH Screening 02/26/2025 02/27/2024 Tobacco Screening 07/11/2025 07/11/2024 Depression Screening 09/23/2025 09/23/2024, 09/24/19 25 Cervical Cancer Screening 08/13/2028 HPV/Cotest 08/13/2028 08/14/2023 [...] Procedure Name Priority Date/Time Associated Diagnosis Comments CULTURE, URINE, ROUTINE Routine 07/11/2024 6:37 PM EST POCT URINALYSIS DIPSTICK Routine 07/11/2024 2:05 PM EST UTI symptoms URINALYSIS, COMPLETE, WITH REFLEX TO CULTURE Routine 07/11/2024 2:00 PM EST UTI symptoms LIPID PANEL, STANDARD [...] Recently Relevant to Health Maintenance Results * Culture, Urine, Routine (07/11/2024 6:37 PM EST) Urine Urine specimen obtained by clean catch procedure / Unknown 07/11/2024 6:37 PM EST 07/11/2024 6:37 PM EST Comment:UACC Narrative [facility] - 07/13/2024 8:29 AM EST Urine Culture Report Result Urine Culture < 10,000 cfu/ml Specimen Source: Urine clean catch Nay Blake [facility] MICROBIOLOGY - GENERAL ORD ERABLES Final Result [facility] [address] [place] [address] [phone] * (ABNORMAL) POCT Urinalysis (07/11/2024 2:05 PM [...] Urine 07/11/2024 2:05 PM EST Nay Blake [facility] POINT OF CARE TEST ENTER/EDIT ORDERABLES Final Result * (ABNORMAL) Urinalysis, Complete, with Reflex to Culture (07/11/2024 2:00 PM EST) Color Urine Yellow [facility] Appearance Urine Cloudy [facility] PH 6.5 5.0 - 9.0 [facility] Glucose Urine UA Negative Negative mg/dL [facility] Urine Blood Small (1+)(A) Negative [facility] Specific [place] - Urine 1.025 1.005 - 1.025 [facility] Urine Protein Trace Neg-Trace mg/dL [facility] Urine Ketones Negative Negative mg/dL [facility] Nitrite Urine Negative Negative [facility] Leukocyte Esterase Urine Moderate (2+)(A) Negative [facility] RBC Urine 11-20(A) 0 - 2 /HPF [facility] Urine WBC >50(A) 0 - 5 /HPF [facility] Urine Squamous Epithelial Cell 3-5 0 - 2 /HPF [facility] Urine Bacteria None Seen None Seen [facility] Hyaline Casts, Urine 0-2 0 - 2 /LPF [facility] Urine 07/11/2024 2:00 PM EST 07/11/2024 5:47 PM EST Narrative [facility] - 07/11/2024 6:03 PM EST [id number], Clean Catch Nay [facility] LAB URINE ORDERABLES Final Res ult [facility] [address] [place] [address] [phone] * Lipid Panel, Standard (03/05/2024 9:53 AM EDT) Triglycerides 123 <150 mg/dL [facility] Comment:Desirable Triglyceri de: less than 150 mg/dLBorderline High Triglyceride 150-199 mg/dLHigh Triglyceride: 200-499 mg/dLVery High Triglyceride: greater than or equal to 5OO mg/dL Cholesterol 155 <200 mg/dL [facility] Comment:Desirable Cholestero l: less than 200 mg/dLBorderline High Cholesterol: 200-239 mg/dLHigh Cholesterol: greater than 239 mg/dL LDL Cholesterol Calculated 88 <100 mg/dL [facility] Comment:Desirable LDL: less than 100 mg/dLNear Optimal/Above Optimal LDL: 110- 129 mg/dLBorderline High LDL: 130-159 mg/dLHigh LDL: 160-189 mg/dLVery High LDL: greater than or equal to 190 mg/dL HDL Cholesterol 43 >40 mg/dL [facility] Comment:Desirable HDL: great er than 40 mg/dL Note: This HDL assay may give artificially low results in patients with liver disease. Blood Venous blood specimen / Unknown 03/05/2024 9:53 AM EDT 03/05/2024 2:21 PM EDT us Rafat Chino MD LAB BLOOD ORDERABL ES Final Result [facility] [address] [place] [phone] * HPV mRNA E6/E7 w/Reflex to HPV Genotypes 16, 18/45 (08/14/2023 1:34 PM EDT) HPV nRNA E6/E7 Not Detected Not Detected [facility] Comment:Methodology: Transcr iption-Mediated AmplificationThis assay detects E6/E7 viral messenger RNA (mRNA) from 14high-risk HPV types (16,18,31,33,35,39,45,51,52,56,58,59,66,68).Cervical sources are required for HPV testing.If a vaginal source from a patient who has had atotal hysterectomy with removal of cervix wassubmitted, please contact the testing laboratoryfor alternative testing options.For additional information, please refer tohttp://education.[employer]/faq/XYG003q6(This link if provided for information/educational purposes only.)THIS TEST WAS PERFORMED AT:[facility] [place] [phone] ARIAS MD HPV mRNA E6/E7 TNP [facility] HPV 16 RNA TNP [facility] HPV 18/45 RNA TNP [facility] 08/14/2023 1:34 PM EDT 08/16/2023 6:30 AM EDT us Christy Dias CNM LAB CYTOLOGY ORDERABLES F inal Result [facility] [address] [place] [address] [phone] * Pap Smear (08/14/2023 1:34 PM EDT) Swab Cervix uteri structure / Unknown 08/14/2023 1:34 PM EDT 08/16/2023 6:30 AM EDT Narrative [facility] - 09/01/2023 4:23 PM EDT ----- ------- Name: Floridalma Abel I ?Age/Sex: 52/F ? : 1970 Unit#: [id number] ?? Attend Dr: CHRISTY DIAS CNM ?Re08/14/23 ?Status: DEP REF ? Location: HO.LNP ?Disch: ? ----- ------- SPEC : [id number] ? RECD: 08/16/23 ? STATUS: ??SOUT ? REQ NUM: [id number] ? BONITA: 08/14/23 ? SUBM DR: CHRISTY DIAS CNM ? ENTERED: ??08/16/23 ?SP TYPE: Pap Smr ?OTHR DR: ? ORDERED: ??Pap Smear ? Interpretation ?? [...] 66, 68) ? HPV testing performed by [facility], [place], [place]. ??See reference laboratory ?? portion of the EMR for entire report. ?Clinical Information LMP: Unknown date Previous PAP test: Unknown date/findings ? Material Received ?? ThinPrep-Cervical ----- ------- Signed (signature on file) Aide Monroy Edwige 09/01/231622 ? ----- ------- ? END OF REPORT ? us Christy Dias [facility] CYTOLOGY ORDERABLES F inal Result [facility] [address] [place] [phone] * Mammography Report 1 (01/09/2022 11:43 AM EDT) Anatomical Region Laterality Modality Breast Bilateral Mammography 01/09/2022 11:4 3 AM EDT Narrative 01/10/2022 1:32 PM EDT Refer to the Notes tab for result details [facility] Procedure: Mammography Report 1 Procedure Note Provider, MD Rosas - 08/06/2022 Refer to the Notes tab for result details [facility] Procedure: Mammography Report 1 Rafat Chino MD IMG BI PROCEDURES Final Result * HEPATITIS C AB W/REFL TO HCV RNA, QN, PCR (11/22/2021 9:22 AM EDT) HEPATITIS C ANTIBODY NON-REACT RAYMOND NON-REACT RAYMOND [facility] INDEX 0.08 <1.00 [facility] Comment: ?? HCV antibody was non-reactive. There is no laboratory ?? evidence of HCV infection. ?? In most cases, no further action is required. However, if recent HCV exposure is suspected, a test for HCV RNA (test code 09731) is suggested. ?? For additional information please refer to http://education.[employer]/faq/KXY69k7 (This link is being provided for informational/ educational purposes only.) ?? 11/22/2021 9:22 AM EDT us Rafat Chino MD HISTORICAL/NON ORD ERABLE LABS Final Result [facility] [address] from Last 3 Months or Most Recently Relevant to Health Maintenance Insurance C3 Care Teams Computer Specialist Relationship Specialty Start Date End Date Rafat Ashraf MD [address] [place] [phone] PCP - General Internal Medicine 09/30/19
--- OUTSIDE RECORDS SUMMARY | 2024-09-23 12:17 | XMS_ITS | Encounter Summary ---
Author Organization [employer] Address [address] [facility] [address] [address] Care Team Providers Care Licensed Club Manager Name Role Phone Rafat Ashraf MD Primary Care Prov ider Encounter Details Date Type Department Care Team (Late st Contact Info) Description 04/25/2022 Orders Only [facility] [address] [place], [place] [phone] Rafat Ashraf MD [address] [place] [address] Iron deficiency anemia secondary to inadequate dietary [...] Primary documented in this encounter Care Teams Licensed Club Manager Relationship Specialty Start Date End Date Rafat Ashraf MD [address] [place] [address] PCP - General Internal Medicine 09/30/19 documented as of this encounter
--- OUTSIDE RECORDS SUMMARY | 2024-09-23 12:17 | XMS_ITS | Encounter Summary ---
Author Organization [employer] Address [address] [place] [address] Care Team Providers Care Wind Projects Supervisor Name Role Phone Rafat Ashraf MD Primary Care Prov ider Encounter Details Date Type Department Care Team (Latest Contact Info) Description 09/22/2024 Travel Social History Tobacco Use Types Packs/Day [...] documented as of this encounter Care Teams Wind Projects Supervisor Relationship Specialty Start Date End Date Rafat Ashraf MD [address] [place] [id number] PCP - General Internal Medicine 09/30/19 documented as of this encounter
--- OUTSIDE RECORDS SUMMARY | 2024-09-23 12:17 | XMS_ITS | Clinical Summary ---
Author Organization [facility] Address [address] [place] [phone] Phone Care Team Providers Care Plumbing Mechanic Name Role Phone Unavailable Primary Care Provider [...]
--- OUTSIDE RECORDS SUMMARY | 2024-09-23 12:17 | XMS_ITS | Encounter Summary ---
Author Organization [facility] Address [address] [place], [place] [phone] Phone Care Team Providers Care Self Defense Instructor Name Role Phone Unavailable Primary Care Provider Unavailabl e Encounter Details Date Type Department Care Team (Late st Contact Info) Description 04/30/2012 Documentation [facility] [place] Family Medicine [address] [place] [address] Family Medicine, Physician [facility] [place] [address] Social History Tobacco Use Types [...]
--- OUTSIDE RECORDS SUMMARY | 2024-09-23 12:17 | XMS_ITS | Encounter Summary ---
Author Organization [employer] Address [address] [facility] [address] [place] [address] Care Team Providers Care Pharmacogeneticist Name Role Phone Rafat Ashraf MD Primary Care Prov ider Encounter Details Date Type Department Care Team (Latest Contact Info) Description 09/23/2024 8:45 AM EDT Telemedicine [facility] [address] [place], [place] [phone] Rafat Ashraf MD [address] [place] [address] Gastroesophageal reflux disease without esophagitis (Primary Dx); Acquired hypothyroidism; Iron deficiency anemia secondary to inadequate dietary iron intake Social History Tobacco Use Types Packs/Day Years [...] AM EDT documented as of this encounter Progress Notes * Rafat Chino MD - 09/23/2024 8:45 AM EDT Subjective Patient ID: Floridalma Abel is a 53 y.o. female who presents for No chief complaint on file.. GERD She reports no coughing, no nausea or no stridor. This is a chronic problem. Review of Systems Respiratory: Negative for cough. Gastrointestinal: Negative for nausea. Objective Physical Exam Neurological: General: No focal deficit present. Mental Status: She is oriented to person, place, and time. Psychiatric: Mood and Affect: Mood normal. Behavior: Behavior normal. Assessment/Plan Problem List Items Addressed This Visit Acquired hypothyroidism Clinically euthyroid, new labs ordered for guidance of therapy Relevant Medications levothyroxine (Synthroid, Levoxyl) 112 MCG tablet Iron deficiency anemia secondary to inadequate dietary iron intake New labs ordereed for evaluation Relevant Medications ferrous gluconate (Fergon) 324 (38 Fe) MG tablet Gastroesophageal reflux disease without esophagitis - Primary Controlled with oral therapy, continue lifestyle changes, call back if worsening documented in this encounter Miscellaneous Notes * Assessment & Plan Note - Rafat Chino MD - 09/23/2024 9:25 AM EDTAssociated Problem(s): Iron deficiency anemia secondary to inadequate dietary iron intake New labs ordereed for evaluation * Assessment & Plan Note - Rafat Chino MD - 09/23/2024 9:25 AM EDTAssociated Problem(s): Acquired hypothyroidism Clinically euthyroid, new labs ordered for guidance of therapy * Assessment & Plan Note - Rafat Chino MD - 09/23/2024 9:22 AM EDTAssociated Problem(s): Gastroesophageal reflux disease without esophagitis Controlled with oral therapy, continue lifestyle changes, call back if worsening documented in this encounter Plan of Treatment Not on file documented as of this encounter Visit Diagnoses Diagnosis Gastroesophageal reflux disease without esophagitis- Primary Esophageal reflux Acquired hypothyroidism Unspecified hypothyroidism Iron deficiency anemia secondary to inadequate dietary iron intake documented in this encounter Additional Health Concerns Assessment Noted Time PHQ-9 Depression Total Score: 0 09/24/19 25 8:50 AM EDT documented as of this encounter Care Teams Pharmacogeneticist Relationship Specialty Start Date End Date Rafat Asharf MD [address] [place] [id number] PCP - General Internal Medicine 09/30/19 documented as of this encounter
--- OUTSIDE RECORDS SUMMARY | 2024-09-23 12:17 | XMS_ITS | Encounter Summary ---
Author Organization [employer] Address [address] [facility] [address] [place] [address] Care Team Providers Care Shipwright Name Role Phone Rafat Ashraf MD Primary Care Prov ider Reason for Visit * Reason Comments Med Refill Encounter Details Date Type Department Care Team ([facility] st Contact Info) Description 05/23/2024 Refill C [facility] [address] [place], [place] [phone] Rafat Ashraf MD [address] [place] [address] Social History Tobacco Use Types Packs/Day Years [...] documented as of this encounter Care Teams Shipwright Relationship Specialty Start Date End Date Rafat Ashraf MD [address] [place] [id number] PCP - General Internal Medicine 09/30/19 documented as of this encounter
[2024-09-23 14:53] LABS: Iron 54 mcg/dL (30-160); Percent Iron Saturation 16 % (15-50); Total Iron Binding Capacity 348 mcg/dL (228-428); Unsaturated Iron Binding 294 ug/dL
[2024-09-23 14:56] LABS: TSH reflex Free T4 1.63 uIU/mL (0.32-4.0)
== END 2024-09-23 10:53 | disposition home or self-care (01) ==
LOC: HO.CHCLDS 10:52
PROVIDERS: Visit Provider Internal Medicine
DX: D50.8 Other iron deficiency anemias (principal); E03.9 Hypothyroidism, unspecified
CPT/HCPCS: 36415; 83540; 84443